=== PATIENT | female | born 1960 | race Caucasian/White ===

== ENCOUNTER 2017-03-11 00:05 | Emergency (ER) | payer MEDICAID ==
[~2017-03-11] VITALS: Ht 160 cm; Wt 72.6 kg
[~2017-03-11 00:05] MED LIST: ACET1TAB23 PO; APIX2.5T PO; CALC667C6 PO; LEVO250T2 PO; METO50TA3 PO; PARI2CAP3 PO; SODI650T PO
--- NOTE | 2017-03-11 00:05 | NUR ---
to bed 2 bib paramedics c/o L sided chest pain with rapid heart rate. noted HR-130's. er md at bedside to eval pt with orders received. place pt on cardiac monitoring, continuous pox, o2@2l/nc. sl 20g to R hand tugboat captain. will carry out orders.
[2017-03-11] MEDS ORDERED: IV NS 0.9% 500 ML BAG IV ONE (00:30)
[2017-03-11] MEDS ORDERED: ASPIRIN 81 MG TAB.CHEW PO ONE (00:30)
[2017-03-11 00:45] LABS: BASOPHILS % (AUTO) 0.2 % (0.0-2.0); EOSINOPHILS # (AUTO) 0.1 /CMM (0.0-0.7); EOSINOPHILS % (AUTO) 1.4 % (0.0-6.0); HEMATOCRIT 35 % (33-45); HEMOGLOBIN 12.1 g/dL (11.5-14.8); LYMPHOCYTES # (AUTO) 2.4 /CMM (0.8-4.8); LYMPHOCYTES % (AUTO) 26.5 % (20.0-44.0); MEAN CORPUSCULAR HEMOGLOBIN 31 PG (26.0-33.0); MEAN CORPUSCULAR HGB CONC 35 g/dl (31.0-36.0); MEAN CORPUSCULAR VOLUME 89 fL (82-100); MONOCYTES # (AUTO) 0.6 /CMM (0.1-1.30); MONOCYTES % (AUTO) 7.2 % (2.0-12.0); NEUTROPHILS # (AUTO) 5.7 /CMM (1.8-8.9); NEUTROPHILS % (AUTO) 64.7 % (43.0-81.0); PLATELET COUNT (AUTO) 279 /CMM (150-450); RDW COEFFICIENT OF VARIATION 16.9 (11.5-15.0); RED BLOOD CELL COUNT(AUTO) 3.93 MIL/uL (4.0-5.2); WHITE BLOOD COUNT (AUTO) 8.9 K/uL (4.3-11.0)
--- NOTE | 2017-03-11 00:48 | NUR ---
TELE [id number]
[2017-03-11 00:54] LABS: CARBON DIOXIDE 26 mmol/L (21-32); CHLORIDE 102 mmol/L (98-107); CREATININE 3.4 mg/dL (0.6-1.3); GLUCOSE 122 mg/dL (74-106); POTASSIUM 3.4 mmol/L (3.5-5.1); SODIUM SERUM 140 mmol/L (136-145); UREA NITROGEN, BLOOD 22 mg/dL (7-18)
--- NOTE | 2017-03-11 01:00 | NUR ---
pt sitting up in bed, no acute distress noted, resp even and unlabored. pt denies pain or discomfort at this time. pt daughter remains at bedside.
[2017-03-11] MEDS ORDERED: ASPIRIN 81 MG TAB.CHEW ONE (01:01)
[2017-03-11 01:04] LABS: TROPONIN I < 0.017 ng/mL (0.00-0.056)
[2017-03-11 01:07] LABS: INR 2.15 (0.87-1.13); PARTIAL THROMBOPLASTIN TIME 40 SEC (23-34)
[2017-03-11 01:08] LABS: PROTHROMBIN TIME 22.5 SECS (9.5-12.7)
[2017-03-11 01:10] LABS: D-DIMER < 0.19 mg/L(FEU (0.17-0.50)
[2017-03-11] MEDS ORDERED: IV NS 0.9% 1,000 ML BAG IV ONE (01:30)
--- NOTE | 2017-03-11 02:36 | NUR ---
IV removed. Catheter intact and site benign. Pressure and 4x4 applied to site. No bleeding noted. Patient discharged to home in stable condition. Written and verbal after care instructions given. Patient verbalizes understanding of instruction. ambulatory with a steady gait noted. pt aaox4 no acute distress noted, resp even and unlabored. pt daughter at bedside to take pt home.
[2017-03-11 02:38] VITALS: BP 98/61
== END 2017-03-11 02:39 | disposition home or self-care (01) ==
LOC: ER 00:06
DX: I95.3 Hypotension of hemodialysis (principal); I12.0 Hypertensive chronic kidney disease with stage 5 chronic kidney disease or end stage renal disease; N18.6 End stage renal disease; K21.9 Gastro-esophageal reflux disease without esophagitis; I48.91 Unspecified atrial fibrillation; Z99.2 Dependence on renal dialysis; Z95.2 Presence of prosthetic heart valve; Z79.01 Long term (current) use of anticoagulants
CPT/HCPCS: 36415; 71010; 80048; 84484; 85025; 85378; 85730; 87081; 93005; 99285; A4606; J7050 ×2; Z7610

== ENCOUNTER 2017-03-14 23:45 | Emergency (ER) | payer MEDICARE, MEDICAID ==
[~2017-03-14] VITALS: Ht 157.5 cm; Wt 72.6 kg
[2017-03-15] MEDS ORDERED: IV NS 0.9% 500 ML BAG IV ONE
--- NOTE | 2017-03-15 00:10 | NUR ---
MD TO PT BEDSIDE AT 0005, IV ESTABLISHED AND BLOOD DRAWN, SENT TO LAB AT 0020. EKG PERFORMED. DTR AT BEDSIDE. PT PRESENTED WITH C/O CHEST PRESSURE AND ANXIETY WITH ELEVATED HR AT HOME PER DTR. XRAY TO PT BEDSIDE AT 0030. PT HAS NO C/O CHEST PRESSURE AT THIS TIME, RECEIVING SLOW BOLUS WAITING FOR LAB RESULTS. PT IN NAD AT THIS TIME.
[2017-03-15 00:14] LABS: BASOPHILS % (AUTO) 0.3 % (0.0-2.0); EOSINOPHILS # (AUTO) 0.1 /CMM (0.0-0.7); EOSINOPHILS % (AUTO) 1.2 % (0.0-6.0); HEMATOCRIT 37 % (33-45); HEMOGLOBIN 12.6 g/dL (11.5-14.8); LYMPHOCYTES # (AUTO) 2.1 /CMM (0.8-4.8); LYMPHOCYTES % (AUTO) 24.9 % (20.0-44.0); MEAN CORPUSCULAR HEMOGLOBIN 30 PG (26.0-33.0); MEAN CORPUSCULAR HGB CONC 34 g/dl (31.0-36.0); MEAN CORPUSCULAR VOLUME 89 fL (82-100); MONOCYTES # (AUTO) 0.5 /CMM (0.1-1.30); MONOCYTES % (AUTO) 6.2 % (2.0-12.0); NEUTROPHILS # (AUTO) 5.6 /CMM (1.8-8.9); NEUTROPHILS % (AUTO) 67.4 % (43.0-81.0); PLATELET COUNT (AUTO) 282 /CMM (150-450); RED BLOOD CELL COUNT(AUTO) 4.14 MIL/uL (4.0-5.2); WHITE BLOOD COUNT (AUTO) 8.2 K/uL (4.3-11.0)
[2017-03-15 00:24] LABS: CALCIUM, SERUM 9.5 mg/dL (8.5-10.1); CARBON DIOXIDE 31 mmol/L (21-32); CHLORIDE 97 mmol/L (98-107); CREATININE 3.6 mg/dL (0.6-1.3); GLUCOSE 138 mg/dL (74-106); POTASSIUM 3.6 mmol/L (3.5-5.1); SODIUM SERUM 138 mmol/L (136-145); UREA NITROGEN, BLOOD 26 mg/dL (7-18)
[2017-03-15 00:32] LABS: INR 2.25 (0.87-1.13); PROTHROMBIN TIME 23.6 SECS (9.5-12.7)
[2017-03-15 00:34] LABS: TROPONIN I < 0.017 ng/mL (0.00-0.056)
[2017-03-15] MEDS ORDERED: DILTIAZEM HCL 50 MG IV IV ONE (01:00)
--- NOTE | 2017-03-15 01:28 | NUR ---
IV removed. Catheter intact and site benign. Pressure and 4x4 applied to site. No bleeding noted. Patient discharged to home in stable condition. Written and verbal after care instructions given. Patient verbalizes understanding of instruction. Pt ambulatory with a steady gait.
[2017-03-15 01:29] VITALS: BP 102/57
== END 2017-03-15 01:31 | disposition home or self-care (01) ==
LOC: ER 23:46
DX: R00.0 Tachycardia, unspecified (principal); I12.0 Hypertensive chronic kidney disease with stage 5 chronic kidney disease or end stage renal disease; I48.91 Unspecified atrial fibrillation; K21.9 Gastro-esophageal reflux disease without esophagitis; N18.6 End stage renal disease; Z79.01 Long term (current) use of anticoagulants; Z99.2 Dependence on renal dialysis; Z95.2 Presence of prosthetic heart valve
CPT/HCPCS: 36415; 71010; 80048; 84484; 85025; 85730; 93005; 96360; 99285; A4606; J7040; Z7610

== ENCOUNTER 2017-03-21 21:54 | Inpatient (IN) | payer MEDICARE, MEDICAID ==
[~2017-03-21] VITALS: Ht 152.4 cm; Wt 93.0 kg
[2017-03-21 22:25] LABS: BASOPHILS # (AUTO) 0.1 /CMM (0.0-0.2); BASOPHILS % (AUTO) 1.6 % (0.0-2.0); EOSINOPHILS # (AUTO) 0.1 /CMM (0.0-0.7); EOSINOPHILS % (AUTO) 1.3 % (0.0-6.0); HEMATOCRIT 36 % (33-45); HEMOGLOBIN 11.9 g/dL (11.5-14.8); LYMPHOCYTES # (AUTO) 2.1 /CMM (0.8-4.8); LYMPHOCYTES % (AUTO) 30.9 % (20.0-44.0); MEAN CORPUSCULAR HEMOGLOBIN 30 PG (26.0-33.0); MEAN CORPUSCULAR HGB CONC 33 g/dl (31.0-36.0); MEAN CORPUSCULAR VOLUME 89 fL (82-100); MONOCYTES # (AUTO) 0.5 /CMM (0.1-1.30); MONOCYTES % (AUTO) 7.9 % (2.0-12.0); NEUTROPHILS # (AUTO) 3.9 /CMM (1.8-8.9); NEUTROPHILS % (AUTO) 58.3 % (43.0-81.0); PLATELET COUNT (AUTO) 250 /CMM (150-450); RDW COEFFICIENT OF VARIATION 16.8 (11.5-15.0); WHITE BLOOD COUNT (AUTO) 6.7 K/uL (4.3-11.0)
[2017-03-21] MEDS ORDERED: ASPIRIN 325 MG TABLET PO ONE (22:30)
[2017-03-21] MEDS ORDERED: IV NS 0.9% 500 ML BAG IV ONE ×2 (22:30→23:30)
--- NOTE | 2017-03-21 22:30 | NUR ---
PT REFUSED ASPIRIN BECAUSE SHE TOOK WARFARIN TODAY. DR ARAGON IS AWARE.
[2017-03-21 22:32] LABS: CALCIUM, SERUM 9.3 mg/dL (8.5-10.1); CARBON DIOXIDE 31 mmol/L (21-32); CHLORIDE 100 mmol/L (98-107); CREATININE 2.7 mg/dL (0.6-1.3); GLUCOSE 163 mg/dL (74-106); POTASSIUM 3.6 mmol/L (3.5-5.1); SODIUM SERUM 139 mmol/L (136-145); UREA NITROGEN, BLOOD 18 mg/dL (7-18)
[2017-03-21] MEDS ORDERED: ASPIRIN 325 MG TABLET ONE (22:36)
[2017-03-21 22:41] LABS: TROPONIN I < 0.017 ng/mL (0.00-0.056)
[2017-03-21 22:47] LABS: B-TYPE NATRIURETIC PEPTIDE 10311 PG/ML (0-125)
[2017-03-21 23:02] LABS: INR 2.27 (0.87-1.13); PROTHROMBIN TIME 23.8 SECS (9.5-12.7)
--- NOTE | 2017-03-21 23:11 | NUR ---
PT'S BP IS 81/40. DR. ARAGON IS AWARE. NEW ORDERS GIVEN.
--- NOTE | 2017-03-21 23:20 | NUR ---
PT APPEARS TO BE RESTING COMFORTABLY.
--- NOTE | 2017-03-21 23:40 | NUR ---
REPORT GIVEN TO RADHA RN
--- NOTE | 2017-03-22 00:20 | NUR ---
DR. ARAGON IS SPEAKING TO BIANCA JOHNSON RE: PT.
[2017-03-22] MEDS ORDERED: METO25TA6 PO (00:36)
[2017-03-22] MEDS ORDERED: ATOR40TA PO (00:40)
[2017-03-22] MEDS ORDERED: TYL2T PO (00:40)
[2017-03-22] MEDS ORDERED: PANT40TA4 PO (00:40)
[2017-03-22] MEDS ORDERED: ERGO400T7 PO (00:40)
[2017-03-22] MEDS ORDERED: HYDR-4076 PO (00:40)
[2017-03-22] MEDS ORDERED: WARF4TAB6 PO (00:40)
--- NOTE | 2017-03-22 00:50 | NUR ---
RN NOTES RECEIVED PATIENT AWAKE FROM EMERGENCY ROOM VIA STRETCHER WITH NO RESPIRATORY DISTRESS OR SHORTNESS OF BREATH. BREATHING EVEN AND UNLABORED. ON 02 AT 2LPM VIA NASAL CANNULA TOLERATING WELL. NO COMPLAINT OF PAIN OR DISCOMFORT. ALERT AND ORIENTED X 4. ARMINIAN SPEAKING WITH LITTLE KNOWLEDGE OF YI. AMBULATORY. VITAL SIGNS WNL. NPO. WILL CONTINUE TO MONITOR.
[2017-03-22] MEDS ORDERED: ZOLPIDEM TARTRATE 5 MG TABLET PO PRN (01:30)
[2017-03-22 01:46] VITALS: BP 100/55
[2017-03-22 04:00] VITALS: BP 111/62
--- NOTE | 2017-03-22 06:35 | NUR ---
RN CLOSING NOTES PATIENT SLEEPING COMFORTABLY IN BED, NO DISTRESS NOTED. NO COMPLAINT OF PAIN OR DISCOMFORT. VITAL SIGNS WNL. ALERT AND ORIENTED. AMBULATORY. NO SIGNIFICANT CHANGE OF CONDITION. WILL ENDORSE TO AM SHIFT FOR CONTINUITY OF CARE.
--- NOTE | 2017-03-22 07:18 | NUR ---
RN INITIAL NOTES: REC'D PT ON BED, NOT IN ANY FORM OF DISTRESS, A/O X4, DENIES CHEST PAIN/DISCOMFORT. ON ROOM AIR, NO SOB. ON TELEMONITOR, SB W/ HR 58 BPM. HAS RCW PERMACATH IN PLACE. HAS L ARM FISTULA, NOTED BRUIT/THRILL. HAS R HAND G20, SL, FLUSHED PATENT & INTACT W/ NO S/SX OF INFECTION/INFILTRATION NOTED. PT KEPT NPO AT THIS TIME. PROVIDED COMFORT & SAFETY MEASURES. BED KEPT LOW & IN LOCKED POS. CALL LIGHT PLACED W/IN REACH. WILL CONTINUE TO MONITOR AND ATTEND PT NEEDS.
[2017-03-22 07:37] LABS: BASOPHILS # (AUTO) 0.1 /CMM (0.0-0.2); BASOPHILS % (AUTO) 0.9 % (0.0-2.0); EOSINOPHILS # (AUTO) 0.1 /CMM (0.0-0.7); EOSINOPHILS % (AUTO) 2.1 % (0.0-6.0); HEMATOCRIT 30 % (33-45); HEMOGLOBIN 10.2 g/dL (11.5-14.8); LYMPHOCYTES # (AUTO) 1.4 /CMM (0.8-4.8); LYMPHOCYTES % (AUTO) 22.6 % (20.0-44.0); MEAN CORPUSCULAR HEMOGLOBIN 30 PG (26.0-33.0); MEAN CORPUSCULAR HGB CONC 34 g/dl (31.0-36.0); MEAN CORPUSCULAR VOLUME 89 fL (82-100); MONOCYTES # (AUTO) 0.6 /CMM (0.1-1.30); MONOCYTES % (AUTO) 9.4 % (2.0-12.0); NEUTROPHILS # (AUTO) 4.1 /CMM (1.8-8.9); PLATELET COUNT (AUTO) 188 /CMM (150-450); RED BLOOD CELL COUNT(AUTO) 3.37 MIL/uL (4.0-5.2); WHITE BLOOD COUNT (AUTO) 6.3 K/uL (4.3-11.0)
[2017-03-22] MEDS ORDERED: ERGO50003 PO (07:40)
[2017-03-22 07:52] LABS: CALCIUM, SERUM 8.6 mg/dL (8.5-10.1); CREATININE 3.3 mg/dL (0.6-1.3)
[2017-03-22 08:00] VITALS: BP 106/57
[2017-03-22 09:00] VITALS: BP 107/69
[2017-03-22] MEDS ORDERED: METOPROLOL TARTRATE 25 MG TABLET PO SCH (09:00)
[2017-03-22] MEDS ORDERED: WARFARIN SODIUM 5 MG TABLET PO SCH (09:00)
[2017-03-22] MEDS ORDERED: ERGOCALCIFEROL (VITAMIN D 2) 50,000 UNIT CAPSULE PO SCH (09:00)
[2017-03-22] MEDS ORDERED: ACETAMINOPHEN ES 500 MG TABLET PO PRN (09:30)
[2017-03-22] MEDS ORDERED: ATORVASTATIN 40 MG TABLET PO SCH (09:30)
--- NOTE | 2017-03-22 09:30 | NUR ---
RN NOTES: PT SEEN & EXAMINED BY DR. POSADAS AND DR. CUELLAR. PER DR. CUELLAR, GIVE COUMADIN 5MG PO PRIOR TO DC AND ADVISE PT NOT TO TAKE ANY AT HOME. PT IS FOR DC TO HOME, SELFCARE TODAY. PT MADE AWARE.
[2017-03-22] MEDS ORDERED: PARICALCITOL 2 MCG PO SCH (10:00)
[2017-03-22] MEDS ORDERED: PANTOPRAZOLE 40 MG TABLET.DR PO SCH (10:00)
--- NOTE | 2017-03-22 10:16 | NUR ---
RN NOTES: PER FAHAD DAVEY TO START PT ON CARDIAC DIET.
--- NOTE | 2017-03-22 10:30 | NUR ---
DIRECTOR OF WOMEN'S SERVICES NOTES: PT DC'D TO HOME, SELF CARE ORDERED. DC DOCUMENTS AND INSTRUCTIONS PROVIDED TO THE PT W/ DTR AT BEDSIDE W/ VERBALIZTION OF UNDERSTANDING. ALL PAPERWORKS SIGNED BY PT. IV ACCESS REMOVED, PRESSURE DRESSING APPLIED W/ NO SIGN/ SYMPTOMS OF INFECTION NOTED. TELEMONITOR REMOVED. PT LEFT FACILITY IN STABLE CONDITION, AMBULATORY W/ STEADY GAIT, ACCOMPANIED BY DTR. ALL BELONGINGS SENT W/ PT, PER PT NOTHING IS MISSING. BELONGING LIST SIGNED BY PT. NO CONCERNS IDENTIFIED WHEN PT DC.
[2017-03-22] MEDS ORDERED: CALCIUM ACETATE 667 MG TABLET PO SCH (13:00)
== END 2017-03-22 10:30 | disposition home or self-care (01) | DRG 205 ==
LOC: ER 22:03 → TELE1 03-22 00:31
PROVIDERS: ADMIT Internal Medicine; ATTEND Internal Medicine
DX: M94.0 Chondrocostal junction syndrome [Tietze] (principal); N18.6 End stage renal disease; I13.2 Hypertensive heart and chronic kidney disease with heart failure and with stage 5 chronic kidney disease, or end stage renal disease; Z79.01 Long term (current) use of anticoagulants; I50.9 Heart failure, unspecified; E78.5 Hyperlipidemia, unspecified; I48.2 Chronic atrial fibrillation; K21.9 Gastro-esophageal reflux disease without esophagitis; Z87.891 Personal history of nicotine dependence; Z95.2 Presence of prosthetic heart valve; Z99.2 Dependence on renal dialysis
CPT/HCPCS: 36415; 71010-TC; 80048-TC; 80061-TC; 83880; 84484-TC; 85025-TC; 85730-TC; 87081-TC; A4606; J7040; Z7610

== ENCOUNTER 2017-04-11 12:27 | Inpatient (IN) | payer MEDICARE, MEDICAID ==
[~2017-04-11] VITALS: Ht 165.1 cm; Wt 91.6 kg
[~2017-04-11 12:27] MED LIST changes: -ACET1TAB23 PO; -APIX2.5T PO; +ATOR40TA PO; +ERGO50003 PO; +HYDR-4076 PO; -LEVO250T2 PO; +METO25TA6 PO; -METO50TA3 PO; +PANT40TA4 PO; -SODI650T PO; +TYL2T PO; +WARF4TAB6 PO
--- NOTE | 2017-04-11 12:35 | NUR ---
AAOX3, C/O MID STERNAL CHEST PAIN, NON RADIATING, WITH SOB SINCE YESTERDAY. SKIN IS WARM AND DRY. OEG7=945% ON RA. PLACED ON MONITOR. WILL CONTINUOUSLY MONITOR THE PATIENT. AWAITING MD FOR EVAL.
[2017-04-11 12:52] LABS: BASOPHILS # (AUTO) 0.1 /CMM (0.0-0.2); BASOPHILS % (AUTO) 0.7 % (0.0-2.0); EOSINOPHILS # (AUTO) 0.1 /CMM (0.0-0.7); EOSINOPHILS % (AUTO) 0.9 % (0.0-6.0); HEMATOCRIT 31 % (33-45); HEMOGLOBIN 10.5 g/dL (11.5-14.8); LYMPHOCYTES # (AUTO) 1.5 /CMM (0.8-4.8); LYMPHOCYTES % (AUTO) 19.1 % (20.0-44.0); MEAN CORPUSCULAR HEMOGLOBIN 30 PG (26.0-33.0); MEAN CORPUSCULAR HGB CONC 34 g/dl (31.0-36.0); MEAN CORPUSCULAR VOLUME 90 fL (82-100); MONOCYTES # (AUTO) 0.5 /CMM (0.1-1.30); MONOCYTES % (AUTO) 5.8 % (2.0-12.0); NEUTROPHILS # (AUTO) 5.6 /CMM (1.8-8.9); NEUTROPHILS % (AUTO) 73.5 % (43.0-81.0); PLATELET COUNT (AUTO) 246 /CMM (150-450); RDW COEFFICIENT OF VARIATION 17.3 (11.5-15.0); RED BLOOD CELL COUNT(AUTO) 3.47 MIL/uL (4.0-5.2); WHITE BLOOD COUNT (AUTO) 7.8 K/uL (4.3-11.0)
[2017-04-11 13:06] LABS: CALCIUM, SERUM 9.3 mg/dL (8.5-10.1); CARBON DIOXIDE 30 mmol/L (21-32); CHLORIDE 101 mmol/L (98-107); CREATININE 6.2 mg/dL (0.6-1.3); GLUCOSE 112 mg/dL (74-106); POTASSIUM 4.7 mmol/L (3.5-5.1); SODIUM SERUM 140 mmol/L (136-145); UREA NITROGEN, BLOOD 38 mg/dL (7-18)
[2017-04-11 13:09] LABS: INR 1.74 (0.87-1.13); PROTHROMBIN TIME 18.1 SECS (9.5-12.7)
[2017-04-11 13:13] LABS: TROPONIN I < 0.017 ng/mL (0.00-0.056)
[2017-04-11 13:18] LABS: ALANINE AMINOTRANSFERASE 53 U/L (12-78); ALBUMIN 3.4 g/dL (3.4-5.0); ALKALINE PHOSPHATASE 110 U/L (46-116); ASPARTATE AMINOTRANSFERASE 34 U/L (15-37); B-TYPE NATRIURETIC PEPTIDE 16862 PG/ML (0-125); BILIRUBIN,DIRECT 0.1 mg/dL (0.0-0.2); BILIRUBIN,TOTAL 0.6 mg/dL (0.2-1.0); TOTAL PROTEIN, SERUM 6.9 g/dL (6.4-8.2)
--- NOTE | 2017-04-11 13:43 | NUR ---
DR INDU TRENT AT BS FOR EVAL.
[2017-04-11] MEDS ORDERED: FURO-144 PO (13:51)
[2017-04-11] MEDS ORDERED: AMIO200T2 PO (13:51)
--- NOTE | 2017-04-11 14:01 | NUR ---
REPORT GIVEN TO MAR SCHAEFFER FOR CULLEN TELE 114-2
[2017-04-11] MEDS ORDERED: ACETAMINOPHEN 325 MG TABLET PO PRN ×2 (14:30→14:45)
[2017-04-11] MEDS ORDERED: ERGOCALCIFEROL (VITAMIN D 2) 50,000 UNIT CAPSULE PO SCH (14:30)
--- NOTE | 2017-04-11 14:35 | NUR ---
RN NOTES ADMITTED A 56Y/O F FROM ER, WITH DX OF ACUTE RESPIRATORY FAILURE. TRANSPORTED VIA STRETCHER ACCOMPANIED BY RN AND TECH. PT IS AWAKE ALERT ORIENTEDX3 ABLE TO COMMUNICATE NEEDS. ON RA TIERRA WELL, DENIES SOB. VS TAKEN AND RECORDED. PER REPORT PT WILL BE SNET FOR VQ SCAN IN ONE HOUR. AND ALSO PT NEEDS STAT DIALYSIS. WITH C/O PAIN ON LEFT LOWER UNDERBREAST PS 4/10, REFUSED TO TAKE ANY MEDS FOR THAT. ORIENTED PT TO UNIT AND CALL LIGHT USE, SAFETY MAINTAINED, NEEDS ATTENDED. CALL LIGHT WITHIN REACH, WILL CONT TO MONITOR.
[2017-04-11 14:50] VITALS: BP 93/57
--- NOTE | 2017-04-11 15:00 | NUR ---
RN NOTES SPOKE WITH JOSE DAUGHTER, PER DAUGHTER SHE DOESN'T WANT HER MOM TO BE TAKEN TO VQ SCAN. DR GRIGGS NOTIFIED. SPOKE WITH BILL HD NURSE, HE WILL DIALYZE PT NOW.
--- NOTE | 2017-04-11 15:15 | NUR ---
RN NOTES DR SERRATO AT BEDSIDE, PT WAS SEEN AND EVALUATED. PER MD PT WILL HAVE DIALYSIS TODAY AND DIDI.
[2017-04-11 16:00] VITALS: BP 117/66
[2017-04-11] MEDS: hydrALAZINE HCL 25 MG TABLET PO SCH (16:57)
[2017-04-11] MEDS ORDERED: hydrALAZINE HCL 25 MG TABLET PO SCH (17:00)
[2017-04-11] MEDS ORDERED: WARFARIN SODIUM 1 MG TABLET PO SCH ×2 (17:00)
[2017-04-11] MEDS ORDERED: METOPROLOL TARTRATE 25 MG TABLET PO SCH (17:00)
[2017-04-11] MEDS: METOPROLOL TARTRATE 25 MG TABLET PO SCH (17:00)
[2017-04-11] MEDS: CALCIUM ACETATE 667 MG TABLET PO SCH (17:25)
[2017-04-11 17:46] LABS: ABG BASE EXCESS 2.6 mmol/L; ABG OXYGEN SATURATION 97.6 % (92.0-98.5); ABG PCO2 31.2 mmHg (35.0-45.0); ABG PH 7.521 (7.350-7.450); ABG PO2 104.9 mmHg (75.0-100.0); AaDO2 7.5 mmHg; COHb 0.4 % (0.5-1.5); MetHb 0.6 % (0.0-1.5); O2Hb 96.6 % (94.0-97.0); SITE, ABG Right Radial; VENT MODE, BG room air
[2017-04-11] MEDS ORDERED: CALCIUM ACETATE 667 MG TABLET PO SCH (18:00)
[2017-04-11] MEDS ORDERED: MAGNESIUM HYDROXIDE 30 ML UDC PO PRN (19:00)
[2017-04-11 20:00] VITALS: BP 113/59
--- NOTE | 2017-04-11 20:34 | NUR ---
RN TEL INITIAL NOTES RECEIVED PT AWAKE IN BED DENIES ANY SOB OR PAIN, CLEAN AND DRY ALL NEEDS MET AT THIS TIME, WELL SAFETY MEASURE IN PLACE. CALL LIGHT WITHIN REACH, WILL CONT TO MONITOR.
[2017-04-11 22:00] VITALS: BP 118/71
[2017-04-12] VITALS (7 sets, daily range): BP systolic 104–123; BP diastolic 42–71
--- NOTE | 2017-04-12 06:28 | NUR ---
RN TEL CLOSING NOTES ENDORSED PT AWAKE IN BED DENIES ANY SOB OR PAIN, CLEAN AND DRY ALL NEEDS MET AT THIS TIME, WELL SAFETY MEASURE IN PLACE. CALL LIGHT WITHIN REACH, WILL CONT TO MONITOR.
--- NOTE | 2017-04-12 07:00 | NUR ---
RN NOTES RECEIVED PT SITTING ON A CHAIR, A/Ox4, ON RA , RESPIRATION EVEN AND UNLABORED, ON TELE SR , HR IN 60'S , NO DISTRESS NOTED, SAFETY MEASURE IN PLACE. CALL LIGHT WITHIN EASY REACH, WILL CONT TO MONITOR.
[2017-04-12] MEDS ORDERED: PANTOPRAZOLE 40 MG TABLET.DR PO SCH (07:30)
[2017-04-12] MEDS: CALCIUM ACETATE 667 MG TABLET PO SCH ×3 (08:41→17:09)
[2017-04-12] MEDS: PANTOPRAZOLE 40 MG TABLET.DR PO SCH (08:41)
--- NOTE | 2017-04-12 08:44 | NUR ---
RN NOTES BP MEDS HELD AT THIS TIME , PT WILL RECEIVED HD THIS AM
[2017-04-12] MEDS: METOPROLOL TARTRATE 25 MG TABLET PO SCH ×2 (09:00→15:32)
[2017-04-12] MEDS ORDERED: AMIODARONE HCL 200 MG TABLET PO SCH (09:00)
[2017-04-12] MEDS: hydrALAZINE HCL 25 MG TABLET PO SCH ×2 (09:00→15:33)
[2017-04-12] MEDS ORDERED: ATORVASTATIN 40 MG TABLET PO SCH (09:00)
--- NOTE | 2017-04-12 09:00 | NUR ---
RN NOTES MORNING BP MED HELD , PT WILL RECEIVED HD THIS AM .
[2017-04-12] MEDS ORDERED: HEPARIN SODIUM, PORCINE 5000 UNITS/1 ML VIAL IV ONE (10:30)
[2017-04-12 12:04] LABS: INR 1.66 (0.87-1.13); PROTHROMBIN TIME 17.3 SECS (9.5-12.7)
[2017-04-12] MEDS: HEPARIN INFUSION/D5W 500 ML IV PRN (12:25)
--- NOTE | 2017-04-12 12:30 | NUR ---
RN NOTES HEPARIN GTT STARTED PER PROTOCOL AND MD ORDER , CONTINUE TO MONITOR .
[2017-04-12] MEDS ORDERED: FUROSEMIDE 40 MG TABLET PO SCH (14:30)
--- NOTE | 2017-04-12 14:41 | NUR ---
RN NOTES PT RECEIVING HD , STABLE , CONTINUE TO MONITOR .
[2017-04-12] MEDS: FUROSEMIDE 40 MG TABLET PO SCH (15:34)
[2017-04-12] MEDS: ATORVASTATIN 40 MG TABLET PO SCH (15:36)
[2017-04-12] MEDS: AMIODARONE HCL 200 MG TABLET PO SCH (15:36)
[2017-04-12] MEDS ORDERED: WARFARIN SODIUM 1 MG TABLET PO SCH (17:00)
--- NOTE | 2017-04-12 18:31 | NUR ---
RN NOTES HEPARIN GTT AT 1350 U/HR RUNNING VIA R AC IV SITE , PT SITTING ON A CHAIR AT THIS TIME, SUPPORTIVE FAMILY AT THE BEDSIDE, NO DISTRESS NOTED , WILL ENDORSE TO DANIEL SHIFT NURSE FOR CULLEN .
--- NOTE | 2017-04-12 18:50 | NUR ---
RN NOTES UNABLE TO DRAW PTT FROM THE L ARM, DUE TO AVG , PTT= 107 . HEPARIN GTT PLACED ON HOLD PER PROTOCOL AT THIS TIME .
--- NOTE | 2017-04-12 19:30 | NUR ---
MS RN OPENING NOTES RECEIVED PATIENT AND REPORT FROM MORNING SHIFT. PATIENT IS SITTING ON A CHAIR AT BED SIDE WITH DAUGHTER. PATIENT IS AA&O X 4. NO SIGNS AND SYMPTOMS OF SOB OR DISTRESS. VERBALLY RESPONSIVE. DENIES PAIN AT THIS TIME. INTRODUCED ELECTRONIC EQUIPMENT TRADES WORKER STAFF ASSIGNED TO THE PATIENT. PLACED CALL LIGHT WITHIN REACH. LISTENED TO PATIENT'S CONCERNS. PATIENT'S HEPARIN DRIP CURRENTLY ON HOLD AND TO BE RESTARTED AT 19:45. WILL DECREASE HEPARIN UNIT BY 250UNITS WHEN RESTARTED AT 19:47. CALL LIGHT WITHIN REACH. INSTRUCTED PATIENT TO CALL FOR HELP ANYTIME IN NEED AND PROVIDED EXCELLENT CUSTOMER SERVICE.
--- NOTE | 2017-04-12 19:47 | NUR ---
MS RN NOTES RESTARTED HEPARIN DRIP AT A RATE OF 1100 UNITS PER HOUR ON RIGHT AC IV ACCESS. SITE WITH NO SIGNS OF INFILTRATION NOR PHLEBITIS. NO SIGNS AND SYMPTOMS OF DISTRESS NOTED. PATIENT IS STABLE AND VERBALLY RESPONSIVE.
--- NOTE | 2017-04-13 03:10 | NUR ---
RN NOTES PTT RESULTS CAME AT 03:10 WHEN IT WAS DRAWN AT 01:30 AFTER 3 PHONE CALLS TO LAB TO RUN IT STAT. PTT = 57 NO CHANGE IN HEPARIN DRIP RATE
[2017-04-13 04:00] VITALS: BP_SYST 112; BP_SYST 119; BP_DIAS 54; BP_DIAS 57
[2017-04-13 06:40] LABS: BASOPHILS # (AUTO) 0.1 /CMM (0.0-0.2); BASOPHILS % (AUTO) 0.9 % (0.0-2.0); EOSINOPHILS # (AUTO) 0.2 /CMM (0.0-0.7); EOSINOPHILS % (AUTO) 2.7 % (0.0-6.0); HEMATOCRIT 35 % (33-45); HEMOGLOBIN 11.6 g/dL (11.5-14.8); LYMPHOCYTES % (AUTO) 28.2 % (20.0-44.0); MEAN CORPUSCULAR HEMOGLOBIN 30 PG (26.0-33.0); MEAN CORPUSCULAR HGB CONC 33 g/dl (31.0-36.0); MEAN CORPUSCULAR VOLUME 90 fL (82-100); MONOCYTES # (AUTO) 0.6 /CMM (0.1-1.30); MONOCYTES % (AUTO) 8.8 % (2.0-12.0); NEUTROPHILS # (AUTO) 4.3 /CMM (1.8-8.9); NEUTROPHILS % (AUTO) 59.4 % (43.0-81.0); PLATELET COUNT (AUTO) 232 /CMM (150-450); RDW COEFFICIENT OF VARIATION 18.1 (11.5-15.0); RED BLOOD CELL COUNT(AUTO) 3.83 MIL/uL (4.0-5.2); WHITE BLOOD COUNT (AUTO) 7.2 K/uL (4.3-11.0)
[2017-04-13 07:01] LABS: CALCIUM, SERUM 9.4 mg/dL (8.5-10.1); PHOSPHORUS 4.4 mg/dL (2.5-4.9); POTASSIUM 4.9 mmol/L (3.5-5.1)
--- NOTE | 2017-04-13 07:20 | NUR ---
RN CLOSING NOTES GIVEN REPORT AND CARE OF PATIENT TO MAR VARNER. PATIENT IS STABLE
[2017-04-13 08:00] VITALS: BP 102/57
--- NOTE | 2017-04-13 08:00 | NUR ---
rn notes RECEIVED PATIENT IN THE ROM. A/A/O X4, NO RESPIRATORY DISTRESS AT THIS TIME, PATIENT ON HEPARIN DRIP ON RIGHT AC AREA INTACT, ENCOURAGED PATIENT EXPRESS FEELINGS AND CONCERNS, PATIENT REFUSED PAIN AT THIS TIME, PATIENT SELF CARE, NEEDS ATTENDED AND ANTICIPATED, V/S TAKEN STABLE, CALL LIGHT WITHIN TO REACH, SAFETY PRECAUTION MAINTAINED ALL THE TIME WITH HELP OF QC SCIENTIST. CONTINUED MONITORING.
[2017-04-13] MEDS: hydrALAZINE HCL 25 MG TABLET PO SCH ×2 (09:00→16:46)
[2017-04-13] MEDS: AMIODARONE HCL 200 MG TABLET PO SCH (09:00)
[2017-04-13] MEDS: METOPROLOL TARTRATE 25 MG TABLET PO SCH ×2 (09:00→16:46)
[2017-04-13 10:16] LABS: INR 1.79 (0.87-1.13); PROTHROMBIN TIME 18.7 SECS (9.5-12.7)
[2017-04-13] MEDS: ATORVASTATIN 40 MG TABLET PO SCH (10:24)
[2017-04-13] MEDS: PANTOPRAZOLE 40 MG TABLET.DR PO SCH (10:24)
[2017-04-13] MEDS: CALCIUM ACETATE 667 MG TABLET PO SCH ×3 (10:24→16:43)
[2017-04-13] MEDS: HEPARIN INFUSION/D5W 500 ML IV PRN (12:00)
--- NOTE | 2017-04-13 12:00 | NUR ---
RN NOTES PATIENT IN THE ROOM, SITTING IN THE CHAIR, A/O X4, NO C/O PAIN AT THIS TIME, NO RESPIRATORY DISTRESS, DAUGHTER NEXT TO THE BED, CALL LIGHT WITHIN TO REACH, SAFETY PRECAUTION MAINTAINED ALL THE TIME.
[2017-04-13] MEDS: FUROSEMIDE 40 MG TABLET PO SCH (15:07)
--- NOTE | 2017-04-13 16:48 | NUR ---
RN NOTES PATIENT LYING IN THE BED, INFUSING HEPARIN DRIP 22 ML/HR, V/S TAKEN BP -105/54. P-55, HELD BP MEDICATION, NO ACUTE DISTRESS, NO C/O PAIN AT THIS TIME, CALL LIGHT WITHIN TO REACH, SAFETY PRECAUTION MAINTAINED ALL THE TIME. PATIENT SELF CARE.
[2017-04-13] MEDS ORDERED: WARFARIN SODIUM 7.5 MG TABLET PO SCH ×3 (17:00)
--- NOTE | 2017-04-13 18:40 | NUR ---
RN NOTES PATIENT IN THE ROOM, FAMILY NEXT TO THE BED, NO ACUTE DISTRESS, NO RESPIRATORY DISTRESS, INFUSING IV HEPARIN DRIP ON RIGHT AC AREA INTACT, V/S STABLE. NO C/O PAIN, CONTINUED MONITORING. ENDORSED ONCOMING NURSE FOR CONTINUATION OF CARE.
[2017-04-13 20:00] VITALS: BP 101/41
--- NOTE | 2017-04-13 20:20 | NUR ---
RN NOTES PT AWAKE ON BED AWAKE ALERT ORIENTED X 34 NO ACUTE ERESP DISTRESS ON ROOM AIR. WITH IV SITE ON RAC G 20 WITH ONGOING HEPARIN DRIP @ 22ML/HR INTACT AND PATENT AND RIGHT UPPER CHEST PERMA CATH AND LEFT UPPER ARM SHUNT WITH BRUIT AND TRILL. NO ACTIVE BLEEDING NOTED. DENIES PAIN. PT IS AMBULATORY AND CONTINENT IN B/B. KEPT PT CLEAN AND COMFORTABLE IN BED. ENCOURAGED TO ELEVATE FOOT WHILE ON BED. WILL CONTINUE TO MONITOR.
[2017-04-14 04:00] VITALS: BP 119/54
--- NOTE | 2017-04-14 06:36 | NUR ---
RN NOTES PATIENT ASLEEP ON AND OFF ON BED. BREATHING EVEN AND UNLABORED. DENIES PAIN. AMBULATE WELL INDEPENDENTLY. CONTINUE WITH ONGOING HEPARIN DRIP AT 22ML/HR NO ACTIVE BLEEDING NOTED. IV SITE ON RIGHT ANTECUBITAL INTACT AND PATENT. PTT CHECKED AT 0700AM WILL FOLLOW UP RESULT. AFEBRILE. ALL NEEDS ATTENDED. KEPT PT CLEAN AND COMFORTABLE IN BED. CALL LIGHT KEPT WITHIN EASY REACH. WILL ENDORSED CONTINUITY OF CARE TO AM NURSE.
[2017-04-14 07:15] LABS: BASOPHILS % (AUTO) 0.5 % (0.0-2.0); EOSINOPHILS # (AUTO) 0.2 /CMM (0.0-0.7); EOSINOPHILS % (AUTO) 2.5 % (0.0-6.0); HEMATOCRIT 33 % (33-45); HEMOGLOBIN 11.1 g/dL (11.5-14.8); LYMPHOCYTES # (AUTO) 1.7 /CMM (0.8-4.8); MEAN CORPUSCULAR HEMOGLOBIN 30 PG (26.0-33.0); MEAN CORPUSCULAR HGB CONC 33 g/dl (31.0-36.0); MEAN CORPUSCULAR VOLUME 90 fL (82-100); MONOCYTES # (AUTO) 0.7 /CMM (0.1-1.30); MONOCYTES % (AUTO) 10.1 % (2.0-12.0); NEUTROPHILS # (AUTO) 4.7 /CMM (1.8-8.9); NEUTROPHILS % (AUTO) 63.9 % (43.0-81.0); PLATELET COUNT (AUTO) 217 /CMM (150-450); RDW COEFFICIENT OF VARIATION 17.4 (11.5-15.0); RED BLOOD CELL COUNT(AUTO) 3.71 MIL/uL (4.0-5.2); WHITE BLOOD COUNT (AUTO) 7.4 K/uL (4.3-11.0)
[2017-04-14 07:21] LABS: INR 2.18 (0.87-1.13); PROTHROMBIN TIME 22.8 SECS (9.5-12.7)
[2017-04-14 07:26] LABS: CALCIUM, SERUM 9.4 mg/dL (8.5-10.1); CREATININE 6.6 mg/dL (0.6-1.3); PHOSPHORUS 5.6 mg/dL (2.5-4.9); POTASSIUM 4.9 mmol/L (3.5-5.1)
--- NOTE | 2017-04-14 07:35 | NUR ---
RN NOTES RECEIVED PT FROM FURNITURE MAKER IN STABLE CONDITION, A&0X3, ON ROOM AIR NO SOB OR DISTRESS NOTED SATING WELL. RAC 20G IV SITE INTACT WITH HEPARIN AT 22ML/HR. 0700AM PTT 67, RATE WILL REMAIN THE SAME. NO COMPLAINTS OF PAIN, NO SIGNS OF ACTIVE BLEEDING NOTED. BED LOCKED AND IN LOWEST POSITION, CALL LIGHT WITHIN REACH, SIDE RAILS UPX3, WILL CONT TO MONITOR.
[2017-04-14 08:00] VITALS: BP 129/59
[2017-04-14] MEDS: CALCIUM ACETATE 667 MG TABLET PO SCH ×2 (08:30→12:05)
[2017-04-14] MEDS: PANTOPRAZOLE 40 MG TABLET.DR PO SCH (08:30)
[2017-04-14] MEDS: ATORVASTATIN 40 MG TABLET PO SCH (08:30)
[2017-04-14] MEDS: METOPROLOL TARTRATE 25 MG TABLET PO SCH (08:31)
[2017-04-14 08:32] VITALS: BP 129/59
[2017-04-14] MEDS: hydrALAZINE HCL 25 MG TABLET PO SCH (08:32)
[2017-04-14] MEDS: AMIODARONE HCL 200 MG TABLET PO SCH (08:32)
[2017-04-14] MEDS ORDERED: WARFARIN SODIUM 7.5 MG TABLET PO ONE (13:00)
[2017-04-14] MEDS ORDERED: WARFARIN SODIUM 7.5 MG TABLET PO SCH (13:00)
--- NOTE | 2017-04-14 13:45 | NUR ---
RN NOTES PT DISCHARGED IN STABLE CONDITION, PTS SON PICKED UP PT.
[2017-04-17] MEDS ORDERED: ERGOCALCIFEROL (VITAMIN D 2) 50,000 UNIT CAPSULE PO SCH (09:00)
== END 2017-04-14 13:42 | disposition home or self-care (01) | DRG 291 ==
LOC: ER 12:29 → TELE1 14:28 → MEDSG1 04-12 10:32
PROC: 5A1D70Z Performance of Urinary Filtration, Intermittent, Less than 6 Hours Per Day (ICD-10-PCS; principal; 2017-04-11)
DX: I13.2 Hypertensive heart and chronic kidney disease with heart failure and with stage 5 chronic kidney disease, or end stage renal disease (principal); N18.6 End stage renal disease; E66.01 Morbid (severe) obesity due to excess calories; Z79.01 Long term (current) use of anticoagulants; I50.33 Acute on chronic diastolic (congestive) heart failure; E66.2 Morbid (severe) obesity with alveolar hypoventilation; I48.0 Paroxysmal atrial fibrillation; J20.8 Acute bronchitis due to other specified organisms; D64.9 Anemia, unspecified; E78.5 Hyperlipidemia, unspecified; K21.9 Gastro-esophageal reflux disease without esophagitis; Z87.891 Personal history of nicotine dependence; Z90.710 Acquired absence of both cervix and uterus; Z95.2 Presence of prosthetic heart valve; Z99.2 Dependence on renal dialysis; Z68.33 Body mass index [BMI] 33.0-33.9, adult; R09.1 Pleurisy
CPT/HCPCS: 36415; 36600; 71010-TC; 80048-TC; 80076-TC; 82803-TC; 83735-TC; 83880; 84100-TC; 84484-TC; 85025-TC; 85610-TC; 85730-TC; 87081-TC; 90935-TC; 93307-TC; 93970-TC; A4606; A6403; J1644; J7050; Z7610

== ENCOUNTER 2017-05-26 08:52 | Inpatient (IN) | payer MEDICARE, MEDICAID ==
[~2017-05-26] VITALS: Ht 157.5 cm; Wt 88.0 kg
[~2017-05-26 08:52] MED LIST changes: +AMIO200T2 PO; +ERGO500014 PO; -ERGO50003 PO; +FURO-144 PO
--- NOTE | 2017-05-26 08:56 | NUR ---
ARIANNE FROM HOME DT ABDOMINAL PAIN, 12/12, ACHING NON RADIATING. PER PATIENT SHE HAD COLONOSCOPY DONE LAST FRIDAY,. SHE ALSO NOTICED BLOOD IN HER STOOL. PT DENIES N/V/D,. PATIENT IS ON COUMADIN AND LOVENOX,. PATIENT'S VSS.
[2017-05-26 09:26] LABS: BASOPHILS % (AUTO) 0.3 % (0.0-2.0); EOSINOPHILS # (AUTO) 0.1 /CMM (0.0-0.7); EOSINOPHILS % (AUTO) 1.7 % (0.0-6.0); HEMATOCRIT 28 % (33-45); HEMOGLOBIN 9.7 g/dL (11.5-14.8); LYMPHOCYTES # (AUTO) 1.8 /CMM (0.8-4.8); LYMPHOCYTES % (AUTO) 22.2 % (20.0-44.0); MEAN CORPUSCULAR HEMOGLOBIN 31 PG (26.0-33.0); MEAN CORPUSCULAR HGB CONC 34 g/dl (31.0-36.0); MEAN CORPUSCULAR VOLUME 91 fL (82-100); MONOCYTES # (AUTO) 0.6 /CMM (0.1-1.30); MONOCYTES % (AUTO) 6.8 % (2.0-12.0); NEUTROPHILS # (AUTO) 5.8 /CMM (1.8-8.9); PLATELET COUNT (AUTO) 255 /CMM (150-450); RED BLOOD CELL COUNT(AUTO) 3.11 MIL/uL (4.0-5.2); WHITE BLOOD COUNT (AUTO) 8.3 K/uL (4.3-11.0)
[2017-05-26 09:31] LABS: CALCIUM, SERUM 8.8 mg/dL (8.5-10.1); POTASSIUM 5.1 mmol/L (3.5-5.1)
[2017-05-26 09:32] LABS: CREATININE 8.3 mg/dL (0.6-1.3)
[2017-05-26 09:38] LABS: ALBUMIN 3.3 g/dL (3.4-5.0); BILIRUBIN,TOTAL 0.4 mg/dL (0.2-1.0); TOTAL PROTEIN, SERUM 6.7 g/dL (6.4-8.2)
[2017-05-26 09:50] LABS: INR 2.03 (0.87-1.13)
[2017-05-26] MEDS ORDERED: IV NS 0.9% 1,000 ML BAG IV ONE (10:00)
[2017-05-26] MEDS ORDERED: PANTOPRAZOLE 80 MG in IV NS 0.9% 500 ML IV ONE (10:30)
--- NOTE | 2017-05-26 11:30 | NUR ---
CALLED FOR REPORT NO NURSE AVAILABLE.
--- NOTE | 2017-05-26 11:40 | NUR ---
SECOND CALL FOR REPROT, NURSE STILL UNAVAILABLE.
[2017-05-26] MEDS ORDERED: Z GUARD REMEDY 2 OZ OINT TP PRN ×2 (12:00→12:45)
[2017-05-26] MEDS ORDERED: HYDROCODONE/APAP 5/325MG 1 EACH TABLET PO PRN (12:00)
[2017-05-26] MEDS ORDERED: AMIODARONE HCL 200 MG TABLET PO SCH (12:00)
[2017-05-26] MEDS ORDERED: ONDANSETRON HCL/PF 4 MG/2 ML VIAL IVP PRN ×2 (12:00→12:45)
[2017-05-26] MEDS ORDERED: ACETAMINOPHEN 325 MG TABLET PO PRN (12:00)
[2017-05-26 13:00] VITALS: BP 95/61
--- NOTE | 2017-05-26 13:00 | NUR ---
ADMISSION NOTES PATIENT ADMITTED FROM ER FEMALE WELSH SPEAKER ON DX OF RECTAL BLEEDING. PATIENT TELE SR-82, NO ACUTE RESPIRATORY DISTRESS, PATIENT C/O PAIN LEFT FLANK AREA 3/10 DULL PAIN, REFUSED PAIN MEDICATION AT THIS TIME. PATIENT A/O X4, ENCOURAGED TO EXPRESS FEELINGS AND CONCERNS. PATIENT SKIN ASSESSMENT DONE INTACT, PATIENT AMBULATORY, CONTINENT. V/S TAKEN BP-95/61mmHg, P-69, R-18, O2-100 ROOM AIR, T-97.6. NEEDS ATTENDED AND ANTICIPATED, FAMILY NEXT TO THE BED, DR SORENSON AWARE OF NEW PATIENT AND NEW MEDICATION, CONTINUED MONITORING.
--- NOTE | 2017-05-26 13:32 | NUR ---
REPORT GIVEN TO JUDE MANUEL FOR TELE 308
--- NOTE | 2017-05-26 14:37 | NUR ---
RN NOTES PATIENT IN THE BED INFUSING PROTONIX 52 ML/HR IN RIGHT HAND INTACT, CALL LIGHT WITHIN TO REACH, PATIENT EATING AT THIS TIME, DAUGHTER NEXT TO THE BED, CONTINUED MONITORING.
--- NOTE | 2017-05-26 15:11 | NUR ---
RN NOTES PATIENT NPO AT THIS TIME EXCEPT MEDS, STAT CBC BECAUSE OF RECTAL BLEEDING. CONTINUED MONITORING.
[2017-05-26] MEDS: DESMOPRESSIN 20 MCG in IV NS 0.9% 50 ML IV ONE ×3 (16:10→17:12)
--- NOTE | 2017-05-26 16:18 | NUR ---
RN NOTES PATIENT REFUSED DESMOPRESSIN 50 ML INFUSION, PATIENT STATE "I DO NOT MEDICATION BECAUSE I AM BLEEDING, I NEED SOMEBODY HELP ME STOP BLEEDING". DAUGHTER REQUESTED TRAN[facility]ER [facility], NOTIFIED PHARMACIST MEKA, AND CHARGE NURSE.
[2017-05-26 16:20] LABS: BASOPHILS % (AUTO) 0.4 % (0.0-2.0); EOSINOPHILS # (AUTO) 0.1 /CMM (0.0-0.7); EOSINOPHILS % (AUTO) 1.2 % (0.0-6.0); HEMATOCRIT 26 % (33-45); HEMOGLOBIN 8.8 g/dL (11.5-14.8); LYMPHOCYTES # (AUTO) 3.6 /CMM (0.8-4.8); LYMPHOCYTES % (AUTO) 31.4 % (20.0-44.0); MEAN CORPUSCULAR HEMOGLOBIN 31 PG (26.0-33.0); MEAN CORPUSCULAR HGB CONC 34 g/dl (31.0-36.0); MEAN CORPUSCULAR VOLUME 92 fL (82-100); MONOCYTES # (AUTO) 0.9 /CMM (0.1-1.30); MONOCYTES % (AUTO) 7.5 % (2.0-12.0); NEUTROPHILS # (AUTO) 6.7 /CMM (1.8-8.9); NEUTROPHILS % (AUTO) 59.5 % (43.0-81.0); PLATELET COUNT (AUTO) 272 /CMM (150-450); RDW COEFFICIENT OF VARIATION 17.6 (11.5-15.0); RED BLOOD CELL COUNT(AUTO) 2.81 MIL/uL (4.0-5.2); WHITE BLOOD COUNT (AUTO) 11.3 K/uL (4.3-11.0)
--- NOTE | 2017-05-26 17:12 | NUR ---
RN NOTES PATIENT CHANGE HER DISCISSION AFTER GI AND LEAD PHP DEVELOPER TALKED TO THE PATENT AND EXPLAINED IMPORTANT OF MEDICATION INTAKE, NOW STARTED DESMOPRESSIN 4MCG IV INFUSION IN 30 MINS, V/S TAKEN 94/64, MANUALLY, P-91, T-97.4, , PATIENT STILL BLEEDING RECTALLY, ASSIST PATIENT TO THE BATHROOM, SAFETY PRECAUTION MAINTAINED ALL THE TIME. CALL LIGHT WITHIN TO REACH.
--- NOTE | 2017-05-26 18:30 | NUR ---
RN NOTES PATIENT IN THE BED, INFUSING PROTONIX 52/ML/HR INTACT, SEEN BY AJ LAMB NP, AND DR BENNETT. LABS RESULT NOTIFIED BY ADONIS CARBONE. CALLED AND LEFT MASSAGE ON NEPHROLOGY DR MEDINA [facility]. DAUGHTER NEXT TO THE BED, SAFETY PRECAUTION MAINTAINED ALL THE TIME,. ENDORSED ONCOMING NURSE FOR CULLEN.
[2017-05-26] MEDS: HYDROCODONE/APAP 5/325MG 1 EACH TABLET PO PRN ×2 (19:51→23:53)
--- NOTE | 2017-05-26 20:00 | NUR ---
CLUB CAR ATTENDANT NOTE: PATIENT RESTING IN BED, NO ACUTE DISTRESS NOTED, DAUGHTER AT BEDSIDE. BREATHING EVEN AND UNLABORED, NO SOB NOTED. IV TO RIGHT HAND INFUSING PROTONIX DRIP AT 52 ML/HR. PATIENT TO GO FOR NM GI BLEED ACUTE BLOOD LOSS, CONSENT SIGNED AND IN CHART. PATIENT COMPLAINS OF HEADACHE PAIN 11/11, NORCO 5/325 MG ORAL GIVEN PER MD ORDER. PATIENT CONTINUES TO HAVE BLOODY STOOL. PATIENT SEEN BY DR. CLEMONS WITH NEW ORDERS FOR REPEAT LAB OF CBC FOR 5 HOURS FROM NOW, AT 0100. BED LOCKED AND IN LOWEST POSITION, CALL LIGHT IN REACH. WILL CONTINUE TO MONITOR.
--- NOTE | 2017-05-26 20:30 | NUR ---
SCALEMAKER NOTE: PATIENT PICKED UP FOR NUCLEAR MEDICINE GI BLEED ACUTE BLOOD LOSS, CONSENT SIGNED IN CHART. PATIENT OFF FLOOR WITH HAND MOLDER MEAT AND DAUGHTER IN STABLE CONDITION.
[2017-05-26 21:01] VITALS: BP 86/62
--- NOTE | 2017-05-26 23:45 | NUR ---
DRIER TRANSFER CAR OPERATOR NOTE: PATIENT BACK FROM RADIOLOGY IN ROOM, NO ACUTE DISTRESS NOTED. TELE MONITOR RECONNECTED AND IV PROTONIX RECONNECTED. BED LOCKED AND IN LOWEST POSITION, CALL LIGHT IN REACH. WILL CONTINUE TO MONITOR. Addendum: 05/27/17 at 0305 by MATILDE NORTON RN NOTED THAT PATIENT SHOULD HAVE TRANSFUSION OF FRESH FROZEN PLASM PER DR. DELL LAMB NOTE, INFORMED GEOLOGICAL SCIENCE TEACHER, ALENA GREEN, RECEIVED ORDERS FOR 2 UNITS OF FRESH FROZEN PLASM. ORDER NOTED AND CARRIED OUT.
[2017-05-27] VITALS (41 sets, daily range): BP systolic 79–121; BP diastolic 43–63
[2017-05-27 00:29] LABS: BASOPHILS % (AUTO) 0.3 % (0.0-2.0); EOSINOPHILS % (AUTO) 0.1 % (0.0-6.0); HEMATOCRIT 21 % (33-45); HEMOGLOBIN 7.1 g/dL (11.5-14.8); LYMPHOCYTES # (AUTO) 1.5 /CMM (0.8-4.8); LYMPHOCYTES % (AUTO) 10.5 % (20.0-44.0); MEAN CORPUSCULAR HEMOGLOBIN 31 PG (26.0-33.0); MEAN CORPUSCULAR HGB CONC 34 g/dl (31.0-36.0); MEAN CORPUSCULAR VOLUME 92 fL (82-100); MONOCYTES # (AUTO) 0.7 /CMM (0.1-1.30); NEUTROPHILS # (AUTO) 11.6 /CMM (1.8-8.9); NEUTROPHILS % (AUTO) 84.1 % (43.0-81.0); PLATELET COUNT (AUTO) 220 /CMM (150-450); RDW COEFFICIENT OF VARIATION 17.8 (11.5-15.0); RED BLOOD CELL COUNT(AUTO) 2.29 MIL/uL (4.0-5.2); WHITE BLOOD COUNT (AUTO) 13.8 K/uL (4.3-11.0)
--- NOTE | 2017-05-27 01:31 | NUR ---
TRUSS DESIGNER NOTE: PATIENT STARTED ON 1ST UNIT OF FRESH FROZEN PLASM, VITAL SIGNS STABLE. WILL CONTINUE TO MONITOR FOR ADVERSE REACTION.
--- NOTE | 2017-05-27 01:45 | NUR ---
HOT PLATE PLYWOOD PRESS LABORER NOTE: PATIENT RECEIVING FFP TO RIGHT HAND IV, WITHOUT ANY ADVERSE REACTION NOTE. VITAL SIGNS STABLE. WILL CONTINUE TO MONITOR
--- NOTE | 2017-05-27 02:45 | NUR ---
BLADE ALIGNER NOTE: PATIENT TOLERATED 1ST UNIT OF FFP WITHOUT ANY ADVERSE REACTION, VITAL SIGNS STABLE. LAB CALLED TO HAVE 2ND UNIT OF FFP TO BE PREPARED. WILL CONTINUE TO MONITOR.
--- NOTE | 2017-05-27 04:20 | NUR ---
COMPUTER SYSTEMS SECURITY ANALYST NOTE: PATIENT STARTED ON 2ND UNIT OF FRESH FROZEN PLASM, VITAL SIGNS STABLE. WILL CONTINUE TO MONITOR FOR ADVERSE REACTION.
--- NOTE | 2017-05-27 04:30 | NUR ---
TOOL MARKER NOTE: PATIENT RECEIVING FFP TO RIGHT HAND IV, WITHOUT ANY ADVERSE REACTION NOTE. VITAL SIGNS STABLE. WILL CONTINUE TO MONITOR
--- NOTE | 2017-05-27 06:00 | NUR ---
MEDICAL RESIDENT NOTE: PATIENT TOLERATED 2ND UNIT OF FFP WITHOUT ANY ADVERSE REACTION, VITAL SIGNS STABLE. WILL CONTINUE TO MONITOR.
--- NOTE | 2017-05-27 07:20 | NUR ---
CATALOGUE MAKER NOTE: PATIENT RESTING IN BED, NO ACUTE DISTRESS NOTED. BREATHING EVEN AND UNLABORED, NO SOB NOTED. IV TO RIGHT HAND IN PLACE, PROTONIX DRIP COMPLETED PER MD ORDER. PATIENT CONTINUES TO HAVE BLOODY STOOL. BED LOCKED AND IN LOWEST POSITION, CALL LIGHT IN REACH. WILL ENDORSE TO DAY NURSE TO CONTINUE WITH PLAN OF CARE.
[2017-05-27 07:21] LABS: BASOPHILS % (AUTO) 0.3 % (0.0-2.0); EOSINOPHILS % (AUTO) 0.1 % (0.0-6.0); LYMPHOCYTES # (AUTO) 1.6 /CMM (0.8-4.8); LYMPHOCYTES % (AUTO) 16.8 % (20.0-44.0); MEAN CORPUSCULAR HEMOGLOBIN 32 PG (26.0-33.0); MEAN CORPUSCULAR HGB CONC 35 g/dl (31.0-36.0); MEAN CORPUSCULAR VOLUME 92 fL (82-100); MONOCYTES # (AUTO) 0.7 /CMM (0.1-1.30); MONOCYTES % (AUTO) 7.5 % (2.0-12.0); NEUTROPHILS # (AUTO) 7.4 /CMM (1.8-8.9); NEUTROPHILS % (AUTO) 75.3 % (43.0-81.0); PLATELET COUNT (AUTO) 167 /CMM (150-450); WHITE BLOOD COUNT (AUTO) 9.8 K/uL (4.3-11.0)
--- NOTE | 2017-05-27 07:30 | NUR ---
MS SMITH RN NOTES PATIENT RECEIVED RESTING INSIDE ROOM, AWAKE, ALERT AND ORIENTED. VERBALLY RESPONSIVE AND RESPONDS TO VERBAL AND TACTILE STIMULI. PATIENT ABLE TO MAKE NEEDS KNOWN AND FOLLOW SIMPLE INSTRUCTIONS. BREATHING EVEN AND UNLABORED. NO SOB OR ACUTE DISTRESS NOTED. PATIENT DENIES ANY PAIN OR DISCOMFORT. BED LOCKED AND IN LOW POSITION. BILATERAL UPPER SIDE RAILS UP. CONTINUE ON NPO STATUS AND TOLERATING WELL. WILL CONTINUE TO MONITOR
[2017-05-27 07:47] LABS: HEMATOCRIT 14 % (33-45); RED BLOOD CELL COUNT(AUTO) 1.57 MIL/uL (4.0-5.2)
[2017-05-27 08:17] LABS: LYMPHOCYTES % (MANUAL) 16 % (16-48); MONOCYTES % (MANUAL) 8 % (0-11.0); MYELOCYTES % 1 % (0-0); NEUTROPHILS % (MANUAL) 75 (42-76)
--- NOTE | 2017-05-27 08:30 | NUR ---
MS RN NOTES RECEIVED LAB RESULTS WITH HGB LEVEL OF 5.0. DR. POSADAS IN UNIT AND MADE AWARE. RECEIVED NEW ORDER FOR TRANSFUSION OF PRBC 1 UNIT STAT. ORDER NOTED AND CARRIED OUT. LAB MADE AWARE REGARDING TRANSFUSION. PATIENT REMAINS AWAKE, ALERT AND ORIENTED X 4. VERBALLY RESPONSIVE AND RESPONDS TO VERBAL AND TACTILE STIMULI. ABLE TO MAKE NEEDS KNOWN AND FOLLOW SIMPLE INSTRUCTIONS. WILL CONTINUE TO MONITOR
[2017-05-27] MEDS ORDERED: NA PHOS,M-B/NA PHOS,DI-BA 1 EA ENEMA RC ONE (08:39)
--- NOTE | 2017-05-27 08:50 | NUR ---
MS RN NOTES STARTED INFUSION OF 1 UNIT PRBC TO RIGHT HAND IV SITE. NO COMPLAIN OF BURNING SENSATION OR ITCHING. PATIENT REMAINS AWAKE, ALERT AND ORIENTED X 4, VERBALLY RESPONSIVE AND RESPONDS TO VERBAL AND TACTILE STIMULI. NO CHANGES IN LOC NOTED. PATIENT REMAINS AFEBRILE, SKIN DRY AND COOL TO TOUCH. DAUGHTER AT BEDSIDE.
[2017-05-27] MEDS ORDERED: PANTOPRAZOLE 40 MG VIAL IV SCH (09:00)
[2017-05-27] MEDS: ATORVASTATIN 40 MG TABLET PO SCH (09:00)
[2017-05-27] MEDS ORDERED: ATORVASTATIN 40 MG TABLET PO SCH (09:00)
--- NOTE | 2017-05-27 09:00 | NUR ---
CASKET COVERER NOTES PATIENT TO TRANSFER TO ICU ROOM 255. REPORT GIVEN TO RONNY MANUEL.
[2017-05-27 09:10] LABS: INR 1.48 (0.87-1.13)
--- NOTE | 2017-05-27 09:15 | NUR ---
IN HOME SALES CONSULTANT NOTES PATIENT ASSISTED WITH TRANSFER. TRANSFERRED TO ICU ROOM 255. NO INJURY DURING TRANSFER. PATIENT REMAINS AWAKE, ALERT, VERBALLY RESPONSIVE AND RESPONDS TO VERBAL AND TACTILE STIMULI. NO CHANGES IN LOC NOTED.
[2017-05-27] MEDS: AMIODARONE HCL 200 MG TABLET PO SCH (09:30)
--- NOTE | 2017-05-27 09:30 | NUR ---
RN NOTES RECEIVED PT FROM ICU TRANSFER D/T ACTIVE BLEEDING IA. TRASNPORTED VIA BED ACCOMPANIED BY RN X3. P[PT AWAKE ALERT ORIENTED X. APPEARS PALE. DAUGHTER AT BEDSIDE. PATIENT REPORTS NO BLOODY STOOL SINCE 4 AM. NO ABDOMINAL PAIN AT THIS TIME. VS MONITORED, AWAITING FOR MD.
[2017-05-27] MEDS ORDERED: PEG 3350/NA SULF,BICARB,CL/KCL 4,000 ML BOTTLE PO ONE (11:00)
--- NOTE | 2017-05-27 11:29 | NUR ---
RN NOTES 1100 DR HARP ART BEDSIDE, PT WAS SEEN AND EVALUATED. FIRST UNIT OF BLOOD INFUSING, PER DR HARP GIVE 3 MORE UNITS WITH DIALYSIS. MD DISCUSSED PLAN OF CARE TO PATIENT AND DAUGHTER. PLAN FOR COLONOSCOPY DIDI IN AM, PT AND DAUGHTER AGREED. DAUGHTER BELGICA SIGNED CONSENT. [address] DR HARP SPOKE WITH DR MEDINA. PT FOR HD TODAY. 3 UNITS OF BLOOD TO BE GIVEN WITH HD. AWAITING FOR ORDERS.
--- NOTE | 2017-05-27 12:45 | NUR ---
RN NOTES 2 UNITS FFP INFUSED WITH HD. DR ADAM LESTER.
[2017-05-27] MEDS: PANTOPRAZOLE 40 MG VIAL IV SCH (12:52)
[2017-05-27] MEDS: ACETAMINOPHEN 325 MG TABLET PO PRN (12:52)
--- NOTE | 2017-05-27 15:10 | NUR ---
ELECTRIC MOTOR FITTER NOTES PT STABLE POST HD , BP OF 97/62 , HR 85 , TEMP OF 97.5 , TOLERATED PROCEDURE WELL , NO S/S OF TRANSFUSION REACTION NOTED , WILL CONTINUE TO MONITOR
--- NOTE | 2017-05-27 15:10 | NUR ---
RN NOTES 3 UNITS OF PRBC INFUSED WITH HD, NO TRANSFUISON REACTION NOTED THROUGOUT THE PROCESS. HD COMPELTED REMOVED 1100ML PER REPORT FROM HD NURSE. PATIENT REFUSED TO START GOLEYTLY PREP AT THIS TIME.
[2017-05-27 15:22] LABS: BASOPHILS % (AUTO) 0.3 % (0.0-2.0); EOSINOPHILS # (AUTO) 0.1 /CMM (0.0-0.7); EOSINOPHILS % (AUTO) 0.5 % (0.0-6.0); HEMATOCRIT 34 % (33-45); HEMOGLOBIN 11.7 g/dL (11.5-14.8); LYMPHOCYTES # (AUTO) 2.4 /CMM (0.8-4.8); MEAN CORPUSCULAR HEMOGLOBIN 30 PG (26.0-33.0); MEAN CORPUSCULAR HGB CONC 35 g/dl (31.0-36.0); MEAN CORPUSCULAR VOLUME 88 fL (82-100); MONOCYTES # (AUTO) 0.6 /CMM (0.1-1.30); MONOCYTES % (AUTO) 5.6 % (2.0-12.0); NEUTROPHILS # (AUTO) 7.4 /CMM (1.8-8.9); NEUTROPHILS % (AUTO) 70.6 % (43.0-81.0); PLATELET COUNT (AUTO) 191 /CMM (150-450); RDW COEFFICIENT OF VARIATION 17.3 (11.5-15.0); RED BLOOD CELL COUNT(AUTO) 3.85 MIL/uL (4.0-5.2); WHITE BLOOD COUNT (AUTO) 10.5 K/uL (4.3-11.0)
[2017-05-27] MEDS: HYDROCODONE/APAP 5/325MG 1 EACH TABLET PO PRN (16:21)
--- NOTE | 2017-05-27 16:24 | NUR ---
RN NOTES MIDLINE NURSE AT BEDSIDE, ATTEMPTED TO INSERT MIDLINE FAILED X1. PATIENT REFUSED 2ND ATTEMPT OF MIDLINE INSERTION, SHE SAID ITS CAUSING HER DISCOMFORT. PATIENT REFUSED TO START GOLEYTLY PREP AT THIS TIME. WILL TRY IN AN HOUR PER PATIENT REQUEST.
--- NOTE | 2017-05-27 17:30 | NUR ---
RN NOTES DAUGHTER BELGICA SPOKE WITH RN. SHE SAID HER MOM REFUSED TO PROCEED WITH COLONOSCOPY AT THIS TIME. SHE WANTS TO SPEAK WITH DR HARP.
[2017-05-27 17:35] LABS: EOSINOPHILS % (AUTO) 0.1 % (0.0-6.0); HEMATOCRIT 27 % (33-45); HEMOGLOBIN 9.4 g/dL (11.5-14.8); LYMPHOCYTES # (AUTO) 1.9 /CMM (0.8-4.8); LYMPHOCYTES % (AUTO) 19.8 % (20.0-44.0); MEAN CORPUSCULAR HEMOGLOBIN 31 PG (26.0-33.0); MEAN CORPUSCULAR HGB CONC 35 g/dl (31.0-36.0); MEAN CORPUSCULAR VOLUME 89 fL (82-100); MONOCYTES % (AUTO) 0.1 % (2.0-12.0); NEUTROPHILS # (AUTO) 7.5 /CMM (1.8-8.9); PLATELET COUNT (AUTO) 147 /CMM (150-450); RDW COEFFICIENT OF VARIATION 17.3 (11.5-15.0); RED BLOOD CELL COUNT(AUTO) 3.08 MIL/uL (4.0-5.2); WHITE BLOOD COUNT (AUTO) 9.4 K/uL (4.3-11.0)
--- NOTE | 2017-05-27 17:45 | NUR ---
RN NOTES DR HARP SPOKE WITH BELGICA BULL. EXPLAINED THE RISKS AND BENEFITS OF THE PROCEDURE, BUT SHE SAID HER MOM UNDERSTANDS THE RISKS BUT SHE JUST WANNA HOLD OFF WITH THE COLONOSCOPY FOR NOW. CHARGE NURSE MUSTAPHA NOTIFIED.
[2017-05-27 17:58] LABS: CALCIUM, SERUM 8.7 mg/dL (8.5-10.1); CREATININE 5.3 mg/dL (0.6-1.3); POTASSIUM 3.4 mmol/L (3.5-5.1)
[2017-05-27 18:12] LABS: INR 1.32 (0.87-1.13)
--- NOTE | 2017-05-27 18:42 | NUR ---
RN NOTES PT SITTING ON CHAIR, NO ACUTE DISTRESS NOTED. ON RA TOLERATED WELL SATING 99%. OFFERED OXYGEN SUPPLEMENTATION FOR COMFORT PATIENT SAID SHE'S FINE. NO SOB NOTED. PATIENT REPORTED SHE JUST HAD EPISODE OF BM FEW MOMENTS AGO, DRY BLOOD NOTED WITH STOOL. ADVISED PATIENT TO NOTIFY RN IF ANOTHER EPISODE OF BM TO ASSESS FOR ANY S/SX OF ACUTE BLEEDING. PATIENT AND DAUGHTER VERBALIZED UNDERSTANDING.
[2017-05-27 22:39] LABS: HEMOGLOBIN 9.3 g/dL (11.5-14.8)
--- NOTE | 2017-05-27 23:00 | NUR ---
TOP INVENTORY CONTROL EXECUTIVE - REC'D PT. SITTING IN BED, WATCHING TV-NO ACUTE DISTRESS. H&H DRAWN AT 21:45. RESULTS ARE 9.07/30. AT FIRST, FAMILY & PT. EXPLAINED TO RN THAT THEY ARE REFUSING ANOTHER COLONOSCOPY DUE TO NO MORE ACTIVE BLEEDING SINCE COAGS WERE STOPPED. PT.DID VOID 75 CC OF CLEAR YELLOW URINE W/ONE SILVER DOLLAR SIZE CLOT INTACT. + BRP'S. DR.BABAK SIMON. CAME TO ASSESS PT. AT 22:15. HE DISCUSSED SEVERAL REASONS FOR RESCHEDULING COLONOSCOPY, THAT THE FAMILY AND PT. ARE ACTUALLY AGREEING TO ANOTHER COLOSCOPY. RN EXPLAINED THAT DR. POSADAS HAS TO BE ON BOARD W/WHEN TO RESTART ANTICOAGULATING PER DR. SIMON'S REASONING. DR. SIMON STATED THAT HE WILL TALK W/DR. HARP IN AM. SBP'S ARE IN THE HIGH 80'S-LOW 90'S & PT. IS ASYSMPTOMATIC. AT PT'S REQUEST, WAS PHONED TO GET A DIET ORDER FOR PT. A RENAL DIET WAS ORDERED SINCE PT.IS A DIALYSIS PT. GOOD BRUIT/GOOD THRILL TO LUE AV SHUNT. PT.ONLY HAS ONE PIV-20G/RT. HAND. HL'D. AFEBRILE. SKIN INTACT. PT.IS NOW ON R/A & SATTING 100%.ALL PULSES PALPABLE X 4 EXT. A&O X 4. MOHAWK SPEAKING ONLY W/LITTLE ENGILSH UNDERSTOOD. CONT.POC.
[2017-05-28] VITALS (34 sets, daily range): BP systolic 78–117; BP diastolic 45–73
[2017-05-28 05:07] LABS: BASOPHILS % (AUTO) 0.5 % (0.0-2.0); EOSINOPHILS # (AUTO) 0.1 /CMM (0.0-0.7); EOSINOPHILS % (AUTO) 0.9 % (0.0-6.0); HEMATOCRIT 24 % (33-45); HEMOGLOBIN 8.4 g/dL (11.5-14.8); LYMPHOCYTES # (AUTO) 1.9 /CMM (0.8-4.8); LYMPHOCYTES % (AUTO) 25.9 % (20.0-44.0); MEAN CORPUSCULAR HEMOGLOBIN 31 PG (26.0-33.0); MEAN CORPUSCULAR HGB CONC 35 g/dl (31.0-36.0); MEAN CORPUSCULAR VOLUME 88 fL (82-100); MONOCYTES # (AUTO) 0.8 /CMM (0.1-1.30); MONOCYTES % (AUTO) 10.7 % (2.0-12.0); NEUTROPHILS # (AUTO) 4.5 /CMM (1.8-8.9); PLATELET COUNT (AUTO) 136 /CMM (150-450); RDW COEFFICIENT OF VARIATION 17.6 (11.5-15.0); RED BLOOD CELL COUNT(AUTO) 2.73 MIL/uL (4.0-5.2); WHITE BLOOD COUNT (AUTO) 7.3 K/uL (4.3-11.0)
[2017-05-28 05:24] LABS: CALCIUM, SERUM 8.5 mg/dL (8.5-10.1); CREATININE 6.5 mg/dL (0.6-1.3); INR 1.29 (0.87-1.13); POTASSIUM 3.8 mmol/L (3.5-5.1)
--- NOTE | 2017-05-28 07:00 | NUR ---
OFFICE REP - DR. POSADAS HERE. STATUS UPDATE WAS GIVEN TO RE:DR. CLEMONS HERE LAST NIGHT & THE FAMILY CHANGING THEIR MINDS RE: COLON - OSCOPY. O.R. PHONED AT 06:30AM ASKING ME RE: THE COLONOSCOPY. I STATED THAT WHEN I CAME ON LAST NIGHT, FAMILY WAS ADAMANT RE: "NO" COLONOSCOPY, THEN THEY CHANGED THEIR MINDS AFTER 22:30 PM LAST NIGHT. NO PREP WAS INITIATED DUE TO THE FAMILY REFUSING AT FIRST & WHETHER DR. HARP IS BACK ON BOARD. VERBAL REPORT ENDORSED TO MAKSIM MANUEL. SECURITY IS CALLING RE: PT'S DAUGHTER DOWN STAIRS WANTING TO COME UP & TALK W/DR. POSADAS. DR. POSADAS STATED HE WILL TALK TO CARLO JACQUES & LOYD FIRST. CONT.POC.
[2017-05-28] MEDS: PANTOPRAZOLE 40 MG VIAL IV SCH (08:27)
[2017-05-28] MEDS: AMIODARONE HCL 200 MG TABLET PO SCH (09:00)
[2017-05-28] MEDS: ATORVASTATIN 40 MG TABLET PO SCH (09:00)
--- NOTE | 2017-05-28 09:40 | NUR ---
RN NOTES SPOKE WITH DR LAY, NOTIFIED MD PT NOW AGREEING FOR COLONOSCOPY. LATEST HEMOGLOBIN 8.4/24. PER MD TRANFUSE 1 UNITS OF PRBC WITH HD AND RECHECK H/H TO RE-EVALUATE IF ANOTHER UNIT IS NECESSARY.
--- NOTE | 2017-05-28 09:54 | NUR ---
RN NOTES PATIENT REFUSED AM MEDS, RISKS AND BENEFITS EXPLAINED PT STILL REFUSED
[2017-05-28 11:16] LABS: BASOPHILS % (AUTO) 0.4 % (0.0-2.0); EOSINOPHILS % (AUTO) 0.6 % (0.0-6.0); HEMATOCRIT 24 % (33-45); HEMOGLOBIN 8.1 g/dL (11.5-14.8); LYMPHOCYTES # (AUTO) 1.4 /CMM (0.8-4.8); LYMPHOCYTES % (AUTO) 21.5 % (20.0-44.0); MEAN CORPUSCULAR HEMOGLOBIN 31 PG (26.0-33.0); MEAN CORPUSCULAR HGB CONC 35 g/dl (31.0-36.0); MEAN CORPUSCULAR VOLUME 88 fL (82-100); MONOCYTES # (AUTO) 0.7 /CMM (0.1-1.30); MONOCYTES % (AUTO) 11.4 % (2.0-12.0); NEUTROPHILS # (AUTO) 4.4 /CMM (1.8-8.9); NEUTROPHILS % (AUTO) 66.1 % (43.0-81.0); PLATELET COUNT (AUTO) 141 /CMM (150-450); RDW COEFFICIENT OF VARIATION 17.5 (11.5-15.0); RED BLOOD CELL COUNT(AUTO) 2.66 MIL/uL (4.0-5.2); WHITE BLOOD COUNT (AUTO) 6.6 K/uL (4.3-11.0)
--- NOTE | 2017-05-28 11:40 | NUR ---
RN NOTES 1 UNIT PRBC TRANSFUSED WITH HD. NO TRANSFUSION REACTION NOTED. PT AFEBRILE. CALM AND COMFORTABLE.
--- NOTE | 2017-05-28 12:22 | NUR ---
RN NOTES DELL [employer] SAL[employer] AGENT AT BEDSIDE, PLAN OF CARE DISCUSSED WITH PATIENT. DAUGHTER AT BEDSIDE. PER DELL COLONOSCOPY SHCEDULED FOR 0730 AM DIDI. WILL GIVE GOLEYTLY PREP SHORTLY.
[2017-05-28] MEDS ORDERED: PEG 3350/NA SULF,BICARB,CL/KCL 4,000 ML BOTTLE PO ONE (12:30)
[2017-05-28] MEDS ORDERED: MAGNESIUM CITRATE 296 ML BOTTLE PO ONE (12:30)
[2017-05-28] MEDS ORDERED: NA PHOS,M-B/NA PHOS,DI-BA 1 EA ENEMA RC PRN (12:30)
--- NOTE | 2017-05-28 12:33 | NUR ---
RN NOTES PT NOTED WITH SOB DURING HD, O2 2LPM VIA NC KEPT FOR COMFORT. PATIENT VERBALIZED FEELING VERY WEAK. BP 80/32. PER HD NURSE SHE WILL STOP HD NOW.
[2017-05-28] MEDS ORDERED: MAGNESIUM CITRATE 296 ML BOTTLE ONE (15:45)
[2017-05-28 16:35] LABS: BASOPHILS % (AUTO) 0.4 % (0.0-2.0); EOSINOPHILS % (AUTO) 0.4 % (0.0-6.0); HEMATOCRIT 31 % (33-45); HEMOGLOBIN 10.9 g/dL (11.5-14.8); LYMPHOCYTES # (AUTO) 1.6 /CMM (0.8-4.8); LYMPHOCYTES % (AUTO) 18.1 % (20.0-44.0); MEAN CORPUSCULAR HEMOGLOBIN 31 PG (26.0-33.0); MEAN CORPUSCULAR HGB CONC 35 g/dl (31.0-36.0); MEAN CORPUSCULAR VOLUME 88 fL (82-100); MONOCYTES # (AUTO) 0.9 /CMM (0.1-1.30); MONOCYTES % (AUTO) 10.2 % (2.0-12.0); NEUTROPHILS # (AUTO) 6.3 /CMM (1.8-8.9); NEUTROPHILS % (AUTO) 70.9 % (43.0-81.0); PLATELET COUNT (AUTO) 157 /CMM (150-450); RDW COEFFICIENT OF VARIATION 16.8 (11.5-15.0); RED BLOOD CELL COUNT(AUTO) 3.55 MIL/uL (4.0-5.2); WHITE BLOOD COUNT (AUTO) 8.8 K/uL (4.3-11.0)
--- NOTE | 2017-05-28 18:14 | NUR ---
RN NOTES CHARGE NURSE LUCIEN CONTACTED DR HARP, PER MD CHECK H/H Q6H. MAY ADD DULCOLAX SINCE PATIENT NO BM SINCE GOLEYTLY STARTED. MAGNESIUM CITRATE GIVEN. PER MD TO GIVE 2 FLEET ENEMA IF BM NOT CLEAR AT 5 AM. ALL ORDERS NOTED AND CARRIED OUT. WILL ENDORSE TO NOC SHIFT RN
--- NOTE | 2017-05-28 18:26 | NUR ---
RN NOTES PT NOTED STOOL WITH BRB, STILL NOTED WITH SOME PARTICLES. GOLEYTLY INTAKE IN PROGRESS. WILL CONT TO MONITOR
[2017-05-28] MEDS ORDERED: BISACODYL (5 MG) 5 MG TABLET.DR PO PRN (18:30)
--- NOTE | 2017-05-28 21:00 | NUR ---
AIR AND WATER TESTER - REC'D PT. USING BRP'S-STOOLING PINKISH-ROBLES URINE/STOOL LIQUID MIXTURE. PT. HAS DRANK 3/4'S OF GO-LIGHTLY MIXTURE & HALF A BOTTLE OF MAG CITRATE. DULCOLAX & TYLENOL WAS ADM. Z-GUARD APPLIED TO TRACY AREA. PT'S DAUGHTER AT BS. CONSENT IS SIGNED FOR TOMORROW'S COLONOSCOPY. PRE-OP CHECK LIST DONE. PT.IS ON R/A & SATTING HIGH 90'S. PT.KNOWS SHE WILL BE NPO AFTER MN. AFEBRILE. CHIU'S WELL. AMB. ALL PULSES PALPABLE X 4 EXT. RUE MIDLINE HAS ALL PORTS PATENT TO FLUSH. CONT.POC
[2017-05-28 23:31] LABS: BASOPHILS % (AUTO) 0.4 % (0.0-2.0); EOSINOPHILS # (AUTO) 0.1 /CMM (0.0-0.7); HEMATOCRIT 28 % (33-45); HEMOGLOBIN 9.9 g/dL (11.5-14.8); LYMPHOCYTES # (AUTO) 1.7 /CMM (0.8-4.8); MEAN CORPUSCULAR HEMOGLOBIN 31 PG (26.0-33.0); MEAN CORPUSCULAR HGB CONC 35 g/dl (31.0-36.0); MEAN CORPUSCULAR VOLUME 87 fL (82-100); MONOCYTES % (AUTO) 12.6 % (2.0-12.0); NEUTROPHILS # (AUTO) 4.9 /CMM (1.8-8.9); PLATELET COUNT (AUTO) 183 /CMM (150-450); RDW COEFFICIENT OF VARIATION 18.4 (11.5-15.0); RED BLOOD CELL COUNT(AUTO) 3.21 MIL/uL (4.0-5.2); WHITE BLOOD COUNT (AUTO) 7.7 K/uL (4.3-11.0)
[2017-05-28] MEDS: ACETAMINOPHEN 325 MG TABLET PO PRN (23:37)
[2017-05-29] VITALS (17 sets, daily range): BP systolic 95–144; BP diastolic 51–72
--- NOTE | 2017-05-29 00:30 | NUR ---
TECHNOLOGY EDUCATION INSTRUCTOR - PT'S 23:00 H&H IS 9.01/30. PT. HAS CONT.LIQUID ROBLES/YELLOW STOOL BECOMING MICROBIOLOGY LABORATORY MANAGER & CLEARER, BUT NOT YET TRANSLUCENT. GO-LIGHTLY FINISHED, DULCOLAX GIVEN & MAG CITRATE WAS 3/4'S DONE. 850 CC OF URINE/STOOL MIX OUTPUT. DAUGHTER WENT HOME. PT.IS ON SURGERY SCHEDULE FOR 7AM. CONT.POC.
[2017-05-29 05:30] LABS: BASOPHILS % (AUTO) 0.4 % (0.0-2.0); EOSINOPHILS # (AUTO) 0.1 /CMM (0.0-0.7); EOSINOPHILS % (AUTO) 1.4 % (0.0-6.0); HEMATOCRIT 26 % (33-45); HEMOGLOBIN 9.1 g/dL (11.5-14.8); LYMPHOCYTES # (AUTO) 1.6 /CMM (0.8-4.8); LYMPHOCYTES % (AUTO) 25.7 % (20.0-44.0); MEAN CORPUSCULAR HEMOGLOBIN 31 PG (26.0-33.0); MEAN CORPUSCULAR HGB CONC 35 g/dl (31.0-36.0); MEAN CORPUSCULAR VOLUME 88 fL (82-100); MONOCYTES # (AUTO) 0.9 /CMM (0.1-1.30); MONOCYTES % (AUTO) 14.5 % (2.0-12.0); NEUTROPHILS # (AUTO) 3.6 /CMM (1.8-8.9); PLATELET COUNT (AUTO) 142 /CMM (150-450); RDW COEFFICIENT OF VARIATION 17.5 (11.5-15.0); RED BLOOD CELL COUNT(AUTO) 2.99 MIL/uL (4.0-5.2); WHITE BLOOD COUNT (AUTO) 6.2 K/uL (4.3-11.0)
[2017-05-29 05:33] LABS: INR 1.27 (0.87-1.13)
[2017-05-29 05:47] LABS: CALCIUM, SERUM 8.2 mg/dL (8.5-10.1); MAGNESIUM 1.9 mg/dL (1.8-2.4); PHOSPHORUS 4.6 mg/dL (2.5-4.9); POTASSIUM 3.4 mmol/L (3.5-5.1)
--- NOTE | 2017-05-29 07:00 | NUR ---
RN NOTES RECEIVED PT ON BED, EGYPTIAN SPEAKING , UNDERSTAND NEPALI, A/Ox4, RESPIRATION EVEN AND UNLABORED, ON RA O2 SAT 99%, NO SOB NOTED, ON TELE SR, HR IN HIGH 60'S , NPO THIS AM FOR COLONOSCOPY , R HAND IV G 20 AND R UPPER ARM MIDLINE CDI, SR UP x3,CALL LIGHTS WITHIN EASY REACH, BED LOCKED AND IN LOWEST POSITION , CONTINUE TO MONITOR CLSOELY
--- NOTE | 2017-05-29 07:50 | NUR ---
RN NOTES PT TO OR AT THIS TIME FOR COLOSCOPY IN STABLE CONDITION.
--- NOTE | 2017-05-29 08:40 | NUR ---
RN NOTES PT BACK TO ROOM FROM OR , VSS STABLE , CONTINUE TO MONITOR.
[2017-05-29] MEDS: AMIODARONE HCL 200 MG TABLET PO SCH ×2 (09:00→09:21)
[2017-05-29] MEDS: POTASSIUM CL. PREMIX PERIPHER. 50 ML IV SCH ×2 (09:00→09:45)
[2017-05-29] MEDS: ATORVASTATIN 40 MG TABLET PO SCH (09:05)
[2017-05-29] MEDS: PANTOPRAZOLE 40 MG VIAL IV SCH (09:21)
[2017-05-29 11:25] LABS: BASOPHILS % (AUTO) 0.4 % (0.0-2.0); EOSINOPHILS % (AUTO) 0.7 % (0.0-6.0); HEMATOCRIT 26 % (33-45); HEMOGLOBIN 8.9 g/dL (11.5-14.8); LYMPHOCYTES # (AUTO) 1.1 /CMM (0.8-4.8); LYMPHOCYTES % (AUTO) 24.6 % (20.0-44.0); MEAN CORPUSCULAR HEMOGLOBIN 31 PG (26.0-33.0); MEAN CORPUSCULAR HGB CONC 35 g/dl (31.0-36.0); MEAN CORPUSCULAR VOLUME 88 fL (82-100); MONOCYTES # (AUTO) 0.6 /CMM (0.1-1.30); MONOCYTES % (AUTO) 13.7 % (2.0-12.0); NEUTROPHILS # (AUTO) 2.8 /CMM (1.8-8.9); NEUTROPHILS % (AUTO) 60.6 % (43.0-81.0); PLATELET COUNT (AUTO) 130 /CMM (150-450); RDW COEFFICIENT OF VARIATION 17.2 (11.5-15.0); WHITE BLOOD COUNT (AUTO) 4.6 K/uL (4.3-11.0)
--- NOTE | 2017-05-29 13:00 | NUR ---
RN NOTES REPORT GIVEN TO TY MANUEL . PT TRANSFERRED TO ROOM 120-1 ROGER STATUS IN STABLE CONDITION PER DR RAJAN ORDER .
--- NOTE | 2017-05-29 13:24 | NUR ---
ROGER RN NOTE RECEIVED PATIENT FROM ICU ALERT , ORIENTEDX3 , PLACED ON TELE SR 73, RT HAND HL INTACT RT UPPER ARM MIDLINE , LT UPPER ARM AV SHUNT WITH BRUIT SOUND , PLAN OF CARE DISCUSSED WITH PATIENT , BED IN LOWEST AND LOCKED POSITION , CALL LIGHT WITHIN REACH, DAUGHTER AT BEDSIDE, WILL CONT TO MONITOR CLOSELY
--- NOTE | 2017-05-29 14:23 | NUR ---
ROGER RN NOTE ALL NEEDS ATTENDED , NO SOB NO ACTIVE BLEEDING NOTED , WILL CONT TO MONITOR CLOSELY
[2017-05-29 17:56] LABS: BASOPHILS % (AUTO) 0.3 % (0.0-2.0); EOSINOPHILS # (AUTO) 0.1 /CMM (0.0-0.7); EOSINOPHILS % (AUTO) 1.1 % (0.0-6.0); HEMATOCRIT 26 % (33-45); HEMOGLOBIN 9.1 g/dL (11.5-14.8); LYMPHOCYTES # (AUTO) 1.3 /CMM (0.8-4.8); MEAN CORPUSCULAR HEMOGLOBIN 31 PG (26.0-33.0); MEAN CORPUSCULAR HGB CONC 35 g/dl (31.0-36.0); MEAN CORPUSCULAR VOLUME 89 fL (82-100); MONOCYTES # (AUTO) 0.6 /CMM (0.1-1.30); MONOCYTES % (AUTO) 11.8 % (2.0-12.0); NEUTROPHILS # (AUTO) 3.3 /CMM (1.8-8.9); NEUTROPHILS % (AUTO) 62.8 % (43.0-81.0); PLATELET COUNT (AUTO) 144 /CMM (150-450); RDW COEFFICIENT OF VARIATION 17.2 (11.5-15.0); RED BLOOD CELL COUNT(AUTO) 2.96 MIL/uL (4.0-5.2); WHITE BLOOD COUNT (AUTO) 5.2 K/uL (4.3-11.0)
--- NOTE | 2017-05-29 19:00 | NUR ---
ORAL AND MAXILLOFACIAL SURGERY NOTE HAVING DINNER , FAMILY AT BEDSIDE, NOT IN ACUTE DISTRESS
[2017-05-29 23:31] LABS: BASOPHILS % (AUTO) 0.5 % (0.0-2.0); EOSINOPHILS # (AUTO) 0.1 /CMM (0.0-0.7); EOSINOPHILS % (AUTO) 1.4 % (0.0-6.0); HEMATOCRIT 26 % (33-45); HEMOGLOBIN 9.1 g/dL (11.5-14.8); LYMPHOCYTES # (AUTO) 1.5 /CMM (0.8-4.8); LYMPHOCYTES % (AUTO) 27.4 % (20.0-44.0); MEAN CORPUSCULAR HEMOGLOBIN 31 PG (26.0-33.0); MEAN CORPUSCULAR HGB CONC 34 g/dl (31.0-36.0); MEAN CORPUSCULAR VOLUME 89 fL (82-100); MONOCYTES # (AUTO) 0.7 /CMM (0.1-1.30); MONOCYTES % (AUTO) 12.9 % (2.0-12.0); NEUTROPHILS # (AUTO) 3.2 /CMM (1.8-8.9); NEUTROPHILS % (AUTO) 57.8 % (43.0-81.0); PLATELET COUNT (AUTO) 153 /CMM (150-450); RDW COEFFICIENT OF VARIATION 16.9 (11.5-15.0); RED BLOOD CELL COUNT(AUTO) 2.96 MIL/uL (4.0-5.2); WHITE BLOOD COUNT (AUTO) 5.6 K/uL (4.3-11.0)
[2017-05-30] VITALS: BP 106/61
[2017-05-30 04:00] VITALS: BP 110/62
[2017-05-30] MEDS: HYDROCODONE/APAP 5/325MG 1 EACH TABLET PO PRN (05:11)
--- NOTE | 2017-05-30 06:51 | NUR ---
RN TEL INITIAL NOTE RECEIVED PATIENT FROM AM SHIFT ALERT , ORIENTEDX3 , PLACED ON TELE SR 73, RT HAND HL INTACT RT UPPER ARM MIDLINE , LT UPPER ARM AV SHUNT WITH BRUIT SOUND , PLAN OF CARE DISCUSSED WITH PATIENT , BED IN LOWEST AND LOCKED POSITION , CALL LIGHT WITHIN REACH, DAUGHTER AT BEDSIDE, WILL CONT TO MONITOR CLOSELY
--- NOTE | 2017-05-30 06:52 | NUR ---
RN TEL CLOSING NOTES PT AOX4, ON RA, WELL TIERRA, VS STABLE. S/P COLONOSCOPY, NO BLEEDING OR C/O DISCOMFORT.
[2017-05-30 07:29] LABS: BASOPHILS % (AUTO) 0.4 % (0.0-2.0); EOSINOPHILS # (AUTO) 0.1 /CMM (0.0-0.7); EOSINOPHILS % (AUTO) 1.5 % (0.0-6.0); HEMATOCRIT 26 % (33-45); HEMOGLOBIN 8.9 g/dL (11.5-14.8); LYMPHOCYTES # (AUTO) 1.2 /CMM (0.8-4.8); LYMPHOCYTES % (AUTO) 23.5 % (20.0-44.0); MEAN CORPUSCULAR HEMOGLOBIN 31 PG (26.0-33.0); MEAN CORPUSCULAR HGB CONC 35 g/dl (31.0-36.0); MEAN CORPUSCULAR VOLUME 89 fL (82-100); MONOCYTES # (AUTO) 0.6 /CMM (0.1-1.30); MONOCYTES % (AUTO) 11.5 % (2.0-12.0); NEUTROPHILS # (AUTO) 3.3 /CMM (1.8-8.9); NEUTROPHILS % (AUTO) 63.1 % (43.0-81.0); PLATELET COUNT (AUTO) 152 /CMM (150-450); RDW COEFFICIENT OF VARIATION 16.9 (11.5-15.0); RED BLOOD CELL COUNT(AUTO) 2.85 MIL/uL (4.0-5.2); WHITE BLOOD COUNT (AUTO) 5.2 K/uL (4.3-11.0)
[2017-05-30 07:32] LABS: CALCIUM, SERUM 8.4 mg/dL (8.5-10.1); CREATININE 7.3 mg/dL (0.6-1.3); PHOSPHORUS 5.9 mg/dL (2.5-4.9); POTASSIUM 3.5 mmol/L (3.5-5.1)
--- NOTE | 2017-05-30 07:45 | NUR ---
LOOM CONTROL CHAIN BUILDER NOTE: PATIENT IN BED, AWAKE ALERT AND ABLE TO MAKE HER NEEDS KNOWN. NO SOB. (L) UA AV SHUNT NOTED INTACT WITH BRUIT AND THRILL PRESENT. AWARE OF HER HD SCHEDULE FOR THE DAY. CALL LIGHT WITHIN REACH. NEEDS ANTICIPATED.
[2017-05-30 08:00] VITALS: BP 110/58
[2017-05-30] MEDS: AMIODARONE HCL 200 MG TABLET PO SCH (09:00)
[2017-05-30] MEDS: PANTOPRAZOLE 40 MG VIAL IV SCH (09:44)
[2017-05-30] MEDS ORDERED: EPOETIN ALFA (10,000 UNIT) 10,000 UNIT/ML VIAL SQ ONE (10:00)
--- NOTE | 2017-05-30 10:31 | NUR ---
ASSISTANT SITE MANAGER NOTE: DR. RAJAN INFORMED IF HE CAN ADVANCE THE PATIENT'S CURRENT DIET PER PT'S REQUEST. MD AWARE THAT COLONOSCOPY WAS DONE YESTERDAY. MD WITH NEW ORDER FOR RENAL DIET. NOTED AND CARRIED OUT. PATIENT AWARE. MD WAS ALSO INFORMED THAT PT HAS DIALYSIS TODAY.
[2017-05-30 11:30] LABS: BASOPHILS % (AUTO) 0.7 % (0.0-2.0); EOSINOPHILS # (AUTO) 0.1 /CMM (0.0-0.7); EOSINOPHILS % (AUTO) 1.8 % (0.0-6.0); HEMATOCRIT 25 % (33-45); HEMOGLOBIN 8.7 g/dL (11.5-14.8); LYMPHOCYTES # (AUTO) 1.1 /CMM (0.8-4.8); LYMPHOCYTES % (AUTO) 27.7 % (20.0-44.0); MEAN CORPUSCULAR HEMOGLOBIN 30 PG (26.0-33.0); MEAN CORPUSCULAR HGB CONC 34 g/dl (31.0-36.0); MEAN CORPUSCULAR VOLUME 88 fL (82-100); MONOCYTES # (AUTO) 0.4 /CMM (0.1-1.30); MONOCYTES % (AUTO) 9.6 % (2.0-12.0); NEUTROPHILS # (AUTO) 2.5 /CMM (1.8-8.9); NEUTROPHILS % (AUTO) 60.2 % (43.0-81.0); PLATELET COUNT (AUTO) 159 /CMM (150-450); RDW COEFFICIENT OF VARIATION 16.5 (11.5-15.0); RED BLOOD CELL COUNT(AUTO) 2.87 MIL/uL (4.0-5.2); WHITE BLOOD COUNT (AUTO) 4.1 K/uL (4.3-11.0)
[2017-05-30 12:00] VITALS: BP 116/69
[2017-05-30] MEDS: ATORVASTATIN 40 MG TABLET PO SCH (13:47)
[2017-05-30 16:00] VITALS: BP 107/58
--- NOTE | 2017-05-30 16:00 | NUR ---
HEAD OF GLOBAL STRATEGIC PARTNERSHIPS NOTE: INFORMED DR. RAJAN RE: PT'S COUMADIN. PER MD HE SPOKE WITH PATIENT ABOUT RESTARTING IT BY TONIGHT. PATIENT MADE AWARE.
[2017-05-30 17:10] LABS: BASOPHILS % (AUTO) 0.4 % (0.0-2.0); EOSINOPHILS # (AUTO) 0.1 /CMM (0.0-0.7); EOSINOPHILS % (AUTO) 0.8 % (0.0-6.0); HEMATOCRIT 30 % (33-45); HEMOGLOBIN 10.3 g/dL (11.5-14.8); LYMPHOCYTES % (AUTO) 12.6 % (20.0-44.0); MEAN CORPUSCULAR HEMOGLOBIN 31 PG (26.0-33.0); MEAN CORPUSCULAR HGB CONC 34 g/dl (31.0-36.0); MEAN CORPUSCULAR VOLUME 90 fL (82-100); MONOCYTES # (AUTO) 0.6 /CMM (0.1-1.30); MONOCYTES % (AUTO) 7.2 % (2.0-12.0); NEUTROPHILS # (AUTO) 6.4 /CMM (1.8-8.9); PLATELET COUNT (AUTO) 184 /CMM (150-450); RDW COEFFICIENT OF VARIATION 17.1 (11.5-15.0); RED BLOOD CELL COUNT(AUTO) 3.34 MIL/uL (4.0-5.2); WHITE BLOOD COUNT (AUTO) 8.1 K/uL (4.3-11.0)
[2017-05-30] MEDS ORDERED: WARFARIN SODIUM 5 MG TABLET PO SCH (18:00)
--- NOTE | 2017-05-30 19:30 | NUR ---
UX ENGINEER NOTE: PATIENT IN BED, AWAKE AND RESTING COMFORTABLY. NOT ON ANY FORM OF DISTRESS. (L) UA AV SHUNT NOTED WITH DRESSING INTACT AND DRY. BRUIT AND THRILL PRESENT. DENIED PAIN. ENDORSED TO PM RN FOR CONTINUITY OF CARE. CALL LIGHT WITHIN REACH.
--- NOTE | 2017-05-30 19:35 | NUR ---
TELE/RN OPENING NOTES PT RECEIVED, HOB ELEVATED. ASLEEP BUT EASILY AROUSABLE TO NAME. A/OX3. TURKISH/TRINIDADIAN SPEAKING. ON ROOM AIR, BREATHING EVEN AND UNLABORED. DENIES SOB OR PAIN AT THIS TIME. ON TELE MONITOR SHOWING SINUS RHYTHM WITH HR 74. JENNIFER MIDLINE PATENT AND INTACT. ROMY AV SHUNT PRESENT. BED IN LOW/LOCKED POSITION WITH CALL LIGHT IN REACH. SIDE RAILS UPX2. WILL CONTINUE TO MONITOR
[2017-05-30 20:00] VITALS: BP 98/51
[2017-05-30 23:00] LABS: BASOPHILS % (AUTO) 0.4 % (0.0-2.0); EOSINOPHILS # (AUTO) 0.1 /CMM (0.0-0.7); EOSINOPHILS % (AUTO) 1.3 % (0.0-6.0); HEMATOCRIT 29 % (33-45); HEMOGLOBIN 9.9 g/dL (11.5-14.8); LYMPHOCYTES # (AUTO) 1.6 /CMM (0.8-4.8); LYMPHOCYTES % (AUTO) 24.1 % (20.0-44.0); MEAN CORPUSCULAR HEMOGLOBIN 31 PG (26.0-33.0); MEAN CORPUSCULAR HGB CONC 35 g/dl (31.0-36.0); MEAN CORPUSCULAR VOLUME 89 fL (82-100); MONOCYTES # (AUTO) 0.6 /CMM (0.1-1.30); MONOCYTES % (AUTO) 8.8 % (2.0-12.0); NEUTROPHILS # (AUTO) 4.3 /CMM (1.8-8.9); NEUTROPHILS % (AUTO) 65.4 % (43.0-81.0); PLATELET COUNT (AUTO) 194 /CMM (150-450); RDW COEFFICIENT OF VARIATION 17.3 (11.5-15.0); WHITE BLOOD COUNT (AUTO) 6.6 K/uL (4.3-11.0)
[2017-05-31] VITALS: BP 110/61
[2017-05-31] MEDS: HYDROCODONE/APAP 5/325MG 1 EACH TABLET PO PRN (00:05)
--- NOTE | 2017-05-31 00:05 | NUR ---
TELE/RN NOTES PT C/O HEADACHE 10/12. ADMINISTERED PRN NORCO ORDERED. WILL MONITOR FOR EFFECTIVENESS.
[2017-05-31 04:00] VITALS: BP 115/65
--- NOTE | 2017-05-31 06:37 | NUR ---
TELE/RN CLOSING NOTES PT ASLEEP, EASILY AROUSABLE. ON ROOM AIR, BREATHING EVEN AND UNLABORED. DENIES SOB OR PAIN AT THIS TIME. IN NO DISTRESS. ON TELE MONITOR SHOWING SINUS RHTYHM WITH HR 63. JENNIFER MIDLINE, AND RIGHT HAND IV PATENT AND INTACT. ROMY AV SHUNT IN PLACE. KEPT PT COMFORTABLE DURING SHIFT. ALL NEEDS MET. NO SIGNIFICANT CHANGES OVERNIGHT. BED IN LOW/LOCKED POSITION WITH CALL LIGHT IN REACH. SIDE RAILS XUP2. WILL ENDORSE TO DAY SHIFT RN CULLEN.
--- NOTE | 2017-05-31 07:38 | NUR ---
TUFTING CREELER OPENING NOTES RECEIVED PATIENT IN BED AWAKE, A/OX3. BENGALI/VINCENTIAN SPEAKING. ON ROOM AIR, SPO2 98%. NO ACUTE DISTRESS, NO SOB NOTED. DENIES PAIN OR DISCOMFORT AT THIS TIME. ON TELEMONITORING, SR HR 70. IV SITE PATENT AND INTACT. ROMY AV SHUNT NOTED. BED IN LOW/LOCKED POSITION WITH CALL LIGHT IN REACH. SIDE RAILS UPX2. WILL CONTINUE TO MONITOR ACCORDINGLY.
[2017-05-31 08:00] VITALS: BP 104/59
[2017-05-31] MEDS: ATORVASTATIN 40 MG TABLET PO SCH (09:18)
[2017-05-31] MEDS: PANTOPRAZOLE 40 MG VIAL IV SCH (09:19)
[2017-05-31] MEDS: AMIODARONE HCL 200 MG TABLET PO SCH (09:26)
[2017-05-31 12:00] VITALS: BP 103/61
[2017-05-31 12:39] LABS: INR 1.15 (0.87-1.13)
--- NOTE | 2017-05-31 16:11 | NUR ---
LINEN ROOM SUPERVISOR NOTES DISCHARGE PATIENT IN STABLE CONDITION ACCOMPANIED BY DAUGHTER AND RN. DISCHARGE INSTRUCTIONS GIVEN, VERBALIZED UNDERSTANDING, PAPERWORK GIVEN TO DAUGHTER. DISCONTINUED IV, APPLIED PRESSURE, NO BLEEDING, NO COMPLICATIONS NOTED. ALL BELONGINGS RETURNED, FORM SIGNED. ARM BAND REMOVED.
== END 2017-05-31 16:08 | disposition home or self-care (01) | DRG 919 ==
LOC: ER 08:54 → TELE 12:49 → MED 05-27 08:48 → ICU 05-27 09:27 → TELE-TD 05-29 13:02 → TELE1 05-29 13:37 → MEDSG1 05-31 12:41
PROVIDERS: ADMIT Internal Medicine
PROC: 30233K1 Transfusion of Nonautologous Frozen Plasma into Peripheral Vein, Percutaneous Approach (ICD-10-PCS; 2017-05-26)
PROC: 30233N1 Transfusion of Nonautologous Red Blood Cells into Peripheral Vein, Percutaneous Approach (ICD-10-PCS; 2017-05-27)
PROC: 5A1D70Z Performance of Urinary Filtration, Intermittent, Less than 6 Hours Per Day (ICD-10-PCS; 2017-05-27)
PROC: 05H533Z Insertion of Infusion Device into Right Subclavian Vein, Percutaneous Approach (ICD-10-PCS; 2017-05-28)
PROC: 5A1D70Z Performance of Urinary Filtration, Intermittent, Less than 6 Hours Per Day (ICD-10-PCS; 2017-05-28)
PROC: 0W3P8ZZ Control Bleeding in Gastrointestinal Tract, Via Natural or Artificial Opening Endoscopic (ICD-10-PCS; principal; 2017-05-29 08:00)
PROC: 5A1D70Z Performance of Urinary Filtration, Intermittent, Less than 6 Hours Per Day (ICD-10-PCS; 2017-05-30)
DX: K91.840 Postprocedural hemorrhage of a digestive system organ or structure following a digestive system procedure (principal); N18.6 End stage renal disease; I13.2 Hypertensive heart and chronic kidney disease with heart failure and with stage 5 chronic kidney disease, or end stage renal disease; E87.1 Hypo-osmolality and hyponatremia; I48.91 Unspecified atrial fibrillation; D62 Acute posthemorrhagic anemia; Z99.2 Dependence on renal dialysis; Z79.899 Other long term (current) drug therapy; Z90.710 Acquired absence of both cervix and uterus; Z96.652 Presence of left artificial knee joint; Z95.2 Presence of prosthetic heart valve; Z82.49 Family history of ischemic heart disease and other diseases of the circulatory system; Z79.01 Long term (current) use of anticoagulants; I50.9 Heart failure, unspecified; E78.5 Hyperlipidemia, unspecified; E66.9 Obesity, unspecified; Y92.009 Unspecified place in unspecified non-institutional (private) residence as the place of occurrence of the external cause; I25.10 Atherosclerotic heart disease of native coronary artery without angina pectoris; Y83.8 Other surgical procedures as the cause of abnormal reaction of the patient, or of later complication, without mention of misadventure at the time of the procedure; Z68.35 Body mass index [BMI] 35.0-35.9, adult
CPT/HCPCS: 36415; 36569; 80048-TC; 80076-TC; 83690-TC; 83735-TC; 84100-TC; 85025-TC; 85027-TC; 85610-TC; 85730-TC; 86850-TC; 86921-TC; 87081-TC; 90935-TC; A4216; A4606; A9560; C9113; J0885; J2405; J2597; J3480; J7030; J7040; J7050; P9016-BL; P9017-BL; Z7610

== ENCOUNTER 2018-09-29 17:39 | Emergency (ER) | payer MEDICARE, MEDICAID ==
[~2018-09-29] VITALS: Ht 162.6 cm; Wt 90.7 kg
[~2018-09-29 17:39] MED LIST changes: -AMIO200T2 PO; +AMIO200T4 PO; -WARF4TAB6 PO; +WARF4TAB72 PO
--- NOTE | 2018-09-29 17:45 | NUR ---
SABRINA, FROM HD [facility]ENTER C/O CP PRESSURE LIKE PAIN, NON RADIATING, 1 SPRAY NITRO GIVEN BY EMS AND RELIEVED. TO ER BED 10, HOOKED TO MONITOR, CHANGED TO GOWN, PROVIDED W WARM BLANKET, DR CARPENTER AT BEDSIDE
[2018-09-29] MEDS ORDERED: WARF3TAB59 PO (17:50)
[2018-09-29] MEDS ORDERED: LISI-607 PO (17:50)
[2018-09-29] MEDS ORDERED: oxyCODONE/APAP (5/325 MG) 1 UDTAB TABLET PO ONE (18:00)
[2018-09-29 18:03] LABS: BASOPHILS % (AUTO) 0.6 % (0.0-2.0); EOSINOPHILS % (AUTO) 1.5 % (0.0-6.0); HEMATOCRIT 38 % (33-45); HEMOGLOBIN 12.8 g/dL (11.5-14.8); LYMPHOCYTES # (AUTO) 1.7 /CMM (0.8-4.8); LYMPHOCYTES % (AUTO) 22.4 % (20.0-44.0); MEAN CORPUSCULAR HGB CONC 34 g/dl (31.0-36.0); MEAN CORPUSCULAR VOLUME 91 fL (82-100); MONOCYTES # (AUTO) 0.6 /CMM (0.1-1.30); NEUTROPHILS # (AUTO) 5.3 /CMM (1.8-8.9); NEUTROPHILS % (AUTO) 67.5 % (43.0-81.0); PLATELET COUNT (AUTO) 254 /CMM (150-450); RED BLOOD CELL COUNT(AUTO) 4.13 MIL/uL (4.0-5.2); WHITE BLOOD COUNT (AUTO) 7.8 K/uL (4.3-11.0)
[2018-09-29 18:10] LABS: CALCIUM, SERUM 9.9 mg/dL (8.5-10.1); CARBON DIOXIDE 30 mmol/L (21-32); CHLORIDE 98 mmol/L (98-107); CREATININE 3.6 mg/dL (0.6-1.3); GLUCOSE 95 mg/dL (74-106); POTASSIUM 3.3 mmol/L (3.5-5.1); SODIUM SERUM 140 mmol/L (136-145); UREA NITROGEN, BLOOD 19 mg/dL (7-18)
[2018-09-29] MEDS ORDERED: oxyCODONE/APAP (5/325 MG) 1 UDTAB TABLET ONE (18:10)
[2018-09-29 18:16] LABS: ALANINE AMINOTRANSFERASE 23 U/L (12-78); ALBUMIN 3.5 g/dL (3.4-5.0); ALKALINE PHOSPHATASE 77 U/L (46-116); ASPARTATE AMINOTRANSFERASE 20 U/L (15-37); BILIRUBIN,DIRECT 0.1 mg/dL (0.0-0.2); BILIRUBIN,TOTAL 0.5 mg/dL (0.2-1.0); LIPASE 417 U/L (73-393); TOTAL PROTEIN, SERUM 8.2 g/dL (6.4-8.2)
--- NOTE | 2018-09-29 19:19 | NUR ---
REPORT GIVEN TO TEAGAN BRAND RN FOR CULLEN
--- NOTE | 2018-09-29 19:21 | NUR ---
IV removed. Catheter intact and site benign. Pressure and 4x4 applied to site. No bleeding noted.Patient discharged to home in stable condition. Written and verbal after care instructions given. Patient verbalizes understanding of instruction.
[2018-09-29 19:22] VITALS: BP 108/61
== END 2018-09-29 19:23 | disposition home or self-care (01) ==
LOC: ER 17:39
DX: I20.9 Angina pectoris, unspecified (principal); I12.0 Hypertensive chronic kidney disease with stage 5 chronic kidney disease or end stage renal disease; N18.6 End stage renal disease; R07.89 Other chest pain; E66.9 Obesity, unspecified; I48.91 Unspecified atrial fibrillation; Z94.0 Kidney transplant status; Z99.2 Dependence on renal dialysis; Z90.710 Acquired absence of both cervix and uterus; Z95.2 Presence of prosthetic heart valve; Z90.89 Acquired absence of other organs; Z98.890 Other specified postprocedural states; Z79.01 Long term (current) use of anticoagulants
CPT/HCPCS: 36415; 71045-TC; 80048-TC; 80076-TC; 83690-TC; 84484-TC; 85025-TC

== ENCOUNTER 2023-04-12 23:45 | Emergency (ER) | payer MEDICARE, OTHER ==
[~2023-04-12] VITALS: Ht 160 cm; Wt 72.6 kg
[~2023-04-12 23:45] MED LIST changes: -AMIO200T4 PO; -ERGO500014 PO; -FURO-144 PO; +LISI-768 PO; -PANT40TA4 PO; +PANT40TA49 PO; -PARI2CAP3 PO; +WARF3TAB59 PO; -WARF4TAB72 PO
[2023-04-13] MEDS ORDERED: CEFEPIME 1 GM VIAL ONE (00:21)
[2023-04-13 00:24] LABS: BASOPHILS % (AUTO) 0.2 % (0.0-2.0); HEMATOCRIT 31 % (33-45); HEMOGLOBIN 9.4 g/dL (11.5-14.8); LYMPHOCYTES # (AUTO) 1.4 K/uL (0.8-4.8); LYMPHOCYTES % (AUTO) 10.2 % (20.0-44.0); MEAN CORPUSCULAR HEMOGLOBIN 28 PG (26.0-33.0); MEAN CORPUSCULAR HGB CONC 31 g/dl (31.0-36.0); MEAN CORPUSCULAR VOLUME 91 fL (82-100); MONOCYTES # (AUTO) 0.1 K/uL (0.1-1.30); MONOCYTES % (AUTO) 0.6 % (2.0-12.0); NEUTROPHILS # (AUTO) 12.3 K/uL (1.8-8.9); PLATELET COUNT (AUTO) 317 K/uL (150-450); RED CELL DISTRIBUTION WIDTH 19.6 % (11.5-15.0); WHITE BLOOD COUNT (AUTO) 13.8 K/uL (4.3-11.0)
[2023-04-13] MEDS ORDERED: IV NS 0.9% 1,000 ML BAG IV ONE (00:30)
[2023-04-13] MEDS ORDERED: VANCOMYCIN 1 GM in IV D5W 250 ML IV ONE (00:30)
[2023-04-13] MEDS ORDERED: CEFEPIME 1 GM in IV D5W 50 ML IV ONE (00:30)
[2023-04-13 00:36] LABS: ALANINE AMINOTRANSFERASE 22 U/L (12-78); ALBUMIN 3.3 g/dL (3.4-5.0); ALKALINE PHOSPHATASE 127 U/L (46-116); ASPARTATE AMINOTRANSFERASE 25 U/L (15-37); BILIRUBIN,DIRECT 0.3 mg/dL (0.0-0.2); BILIRUBIN,TOTAL 0.8 mg/dL (0.2-1.0); CALCIUM, SERUM 10.1 mg/dL (8.5-10.1); CARBON DIOXIDE 16 mmol/L (21-32); CHLORIDE 96 mmol/L (98-107); CREATININE 3.5 mg/dL (0.6-1.3); GLUCOSE 178 mg/dL (74-106); POTASSIUM 4.3 mmol/L (3.5-5.1); SODIUM SERUM 134 mmol/L (136-145); TOTAL PROTEIN, SERUM 7.6 g/dL (6.4-8.2)
[2023-04-13 00:39] LABS: LACTIC ACID 6.3 mmol/L (0.4-2.0); UREA NITROGEN, BLOOD 89 mg/dL (7-18)
[2023-04-13 00:55] LABS: INR 3.92 (0.91-1.10); PARTIAL THROMBOPLASTIN TIME 54.1 SEC (24.3-34.3)
[2023-04-13] MEDS ORDERED: ACETAMINOPHEN ES 500 MG TABLET ONE ×2 (00:55→14:55)
[2023-04-13] MEDS ORDERED: ACETAMINOPHEN ES 500 MG TABLET PO ONE ×2 (01:00→13:30)
[2023-04-13] MEDS ORDERED: VANCOMYCIN 1 GM /D5W 250 ML PB IV ONE (01:09)
[2023-04-13 01:24] LABS: APPEARANCE,URINE CLOUDY (CLEAR); BILIRUBIN,URINE NEGATIVE (NEGATIVE); BLOOD, URINE 2+ Ery/uL (NEGATIVE); COLOR,URINE YELLOW (YELLOW); KETONES,URINE NEGATIVE (NEGATIVE); LEUKOCYTE ESTERASE ,URINE 1+ (NEGATIVE); NITRITE, URINE NEGATIVE (NEGATIVE); PH,URINE 5.5 (5.0-8.0); PROTEIN,URINE 3+ mg/dl (NEGATIVE); UGLUCOSE NEGATIVE (NEGATIVE); UROBILINOGEN,URINE 0.2 EU/dL (0.2)
[2023-04-13 01:46] LABS: ADD URINE CULTURE YES; BACTERIA,URINE 1+ /HPF (None Seen); MUCUS,URINE Many /LPF (None Seen); WBC,URINE 21-50 /HPF (0-3)
[2023-04-13] MEDS ORDERED: METOCLOPRAMIDE HCL 10 MG/2 ML VIAL ONE (02:58)
[2023-04-13] MEDS ORDERED: METOCLOPRAMIDE HCL 10 MG/2 ML VIAL IV ONE (03:00)
[2023-04-13] MEDS ORDERED: MIDODRINE HCL (5MG) 5 MG TABLET PO STA (04:20)
[2023-04-13] MEDS ORDERED: MIDODRINE HCL (5MG) 5 MG TABLET ONE (04:24)
[2023-04-13 06:03] LABS: CALCIUM, SERUM 9.6 mg/dL (8.5-10.1); CREATININE 3.8 mg/dL (0.6-1.3); POTASSIUM 3.7 mmol/L (3.5-5.1)
[2023-04-13 21:28] VITALS: BP 96/55; TEMP 98.9; O2SAT 96
== END 2023-04-13 21:28 | disposition left against medical advice (07) ==
LOC: ER 23:57
DX: A41.9 Sepsis, unspecified organism (principal); R65.20 Severe sepsis without septic shock; R68.89 Other general symptoms and signs; N39.0 Urinary tract infection, site not specified; R50.9 Fever, unspecified; E78.5 Hyperlipidemia, unspecified; I12.0 Hypertensive chronic kidney disease with stage 5 chronic kidney disease or end stage renal disease; N18.6 End stage renal disease; I48.91 Unspecified atrial fibrillation; Z90.49 Acquired absence of other specified parts of digestive tract; Z20.822 Contact with and (suspected) exposure to COVID-19; Z79.899 Other long term (current) drug therapy; Z88.1 Allergy status to other antibiotic agents
CPT/HCPCS: 99291; 99292; 93005; 71045; 87077; 36415; 74176; 96365; 96366; 96375; 87426; 96368; 84145; 85025; 80048 ×2; 87040 ×2; 87086; 83605 ×2; 80076; 87186; 81001; 84484 ×2; 85730; 83880; J2765; J3370 ×2; J7060; J7030 ×2; A4223; J0692 ×2; C9803